=== PATIENT | female | born 1965 | race Caucasian/White ===

== ENCOUNTER 2016-12-01 12:35 | Emergency (ER) | payer OTHER ==
[~2016-12-01] VITALS: Ht 177.8 cm; Wt 118.0 kg
[~2016-12-01 12:35] MED LIST: CETI1CAP3 PO; HYDR-5688 PO; KETO10TA PO; LEVO25TA5 PO; NAPR-1169 PO; NARA2.5T2 PO; OMEP20TA PO; ONDA8TAB6 PO; TOPI50TA16 PO; ZNTT/150 PO
[2016-12-01 12:36] VITALS: Ht 177.8 cm; Wt 118.0 kg
[2016-12-01] MEDS ORDERED: PROCHLORPERAZINE 5 MG/ML 2 ML VIAL IV STA (13:01)
[2016-12-01] MEDS ORDERED: DiphenhydrAMINE HCL 50 MG/ML VIAL IV STA (13:01)
[2016-12-01] MEDS ORDERED: KETOROLAC TROMETHAMINE 30 MG/ML VIAL IV STA (13:01)
[2016-12-01] MEDS ORDERED: DEXAMETHASONE SOD INJ 10 MG/ML VIAL IV ONE (13:15)
[2016-12-01] MEDS ORDERED: ASPI-390 PO (13:19)
[2016-12-01 13:38] VITALS: BP 155/96; PULSE 70; TEMP 36.6; O2SAT 98
--- NOTE | 2016-12-01 14:15 | EMERGENCY ROOM VISIT NOTE ---
History First contact with patient: 12:43 Chief Complaint: HEADACHE Stated Complaint: MIGRAINE X 5 DAYS History of Present Illness The patient is a 51 year old female who presents to the Emergency Room with complaints of migraine headache for the past 5 days. The patient has a reported long-standing history of migraine headaches. Every few months she will have one similar to this that does not improve with her at home medications. Over the past 5 days she has taken Amerge, oral Toradol, and Imitrex without complete resolution of her symptoms. She has not taken anything today or yesterday. The patient rates her discomfort an 8/10. She does follow with Dr. Perez of neurology. She has an appointment with neurology within the next month. This is not the worst headache of her life, and feels similar to her typical bad migraine. She has not had fever or chills. She is with mild photophobia, which is normal. Review of Systems More than 10 systems were reviewed and otherwise negative with the exception of history of present illness. Past Medical/Surgical History History of chronic migraines Family History No pertinent family history Social History Smoking Status: Never Smoker Housing Status: lives with family Occupation Status: employed Current/Historical Medications Scheduled Cetirizine Hcl (All Day Allergy), 1 CAP PO DAILY Levothyroxine Sodium (Levothyroxine Sodium), 1 TAB PO DAILY Naproxen (Naprosyn), 500 MG PO BID Omeprazole (Omeprazole), 1 TAB PO BID Ranitidine (Zantac), 1 TAB PO BID Topiramate (Topamax), 50 MG PO BID Scheduled PRN Rmppbwt-Pueqpkjljimrs-Wjcicgaa (Excedrin Migraine), 2 CAP PO Q6H PRN for Migraine Hydrocodone/Acetaminophen 5MG/325MG ([place] 5MG/325MG), 1 TAB PO DAILY PRN for Pain Ketorolac (Toradol), 10 MG PO UD PRN for Pain Naratriptan Hcl (Amerge), 1 TAB PO UD PRN for Migraine Ondansetron Hcl (Zofran), 8 MG PO TID PRN for Nausea Allergies Coded Allergies: Acetaminophen (Verified Allergy, Intermediate, RASH, 12/01/16) Oxycodone (Verified Allergy, Intermediate, RASH, 12/01/16) Sulfa Antibiotics (Verified Allergy, Intermediate, hives, 12/01/16) Azithromycin (Verified Allergy, Mild, RASH, 12/01/16) Topiramate (Verified Allergy, Unknown, 12/01/16) Codeine (Verified Adverse Reaction, Mild, N/V, 12/01/16) Physical Exam Vital Signs Date Time Temp Pulse Resp B/P Pulse Ox O2 Delivery O2 Flow Rate FiO2 12/01/16 13:38 36.6 70 12 155/96 98 12/01/16 13:36 70 12 155/96 98 Room Air 12/01/16 12:47 70 10 170/110 12/01/16 12:36 36.6 83 20 198/122 98 Room Air Pain Rating (0-10): 4.0 Physical Exam VITALS: Vitals are noted on the nurse's note and reviewed by myself. Vital signs stable. GENERAL: Well-developed, well-nourished, white female who is seated in a darkened room. She does not appear toxic and is cooperative with the examination., HEAD: Normocephalic atraumatic. NECK: Supple without nuchal rigidity. No lymphadenopathy. No thyromegaly. Cervical spine is nontender. No meningismus. HEART: Regular rate and rhythm without murmurs gallops or rubs. LUNGS: Clear to auscultation bilaterally without wheezes, rales or rhonchi. No retractions or accessory muscle use. ABDOMEN: Positive normal bowel sounds x 4. Soft, nontender, without masses or organomegaly. No guarding or rebound tenderness. NEURO: Patient was alert and oriented to person place and time. CN II through XII grossly intact. Deep tendon reflexes 2+ throughout. Medical Decision & Procedures Medications Administered Medications (Trade) Dose Ordered Sig/Deshawn Route Start Time Stop Time Status Last Admin Dose Admin Diphenhydramine HCl (Benadryl Inj) 50 mg NOW STAT IV 12/01/16 13:01 12/01/16 13:03 DC 12/01/16 13:25 50 MG Prochlorperazine Edisylate (Compazine Inj) 10 mg NOW STAT IV 12/01/16 13:01 12/01/16 13:03 DC 12/01/16 13:20 10 MG Dexamethasone Sodium Phosphate (Decadron Inj) 10 mg NOW ONCE IV 12/01/16 13:15 12/01/16 13:16 DC 12/01/16 13:25 10 MG Ketorolac Tromethamine (Toradol Inj) 30 mg NOW STAT IV 12/01/16 13:01 12/01/16 13:03 DC 12/01/16 13:24 30 MG ED Course Physical exam and history were performed. Nursing notes and EMR were reviewed. Patient appears to have headache symptoms for the past 5 days. I had a lengthy discussion with the patient regarding her migraines and typical treatments. She is not regularly seen at this facility for migraines. Evidently she has had normal imaging in the past and does have a neurology appointment. She has used her normal regimen at home without significant relief of symptoms. I discussed options of care with the patient, and we elected to defer CT imaging at this time. She does not have signs of meningitis or encephalitis. The patient will be given 30 mg IV Toradol, 10 mg IV Decadron, 10 mg IV Compazine, and 50 mg IV Benadryl for her symptoms. The patient was asked to keep her appointment with neurology for ongoing care and evaluation. The patient was otherwise invited back to the ER with any new, worsening, or concerning symptoms. She was discharged home under the care of her who is acting as the straight truck driver today. The chart was completed utilizing [employer]AR[employer] Speech Voice Recognition Software. Grammatical errors, random word insertions, pronoun errors, and incomplete sentences are an occasional consequence of this system due to software limitations, ambient noise, and hardware issues. Any formal questions or concerns about the content, text, or information contained within the body of this dictation should be directly addressed to the provider for clarification. . Medical Decision The differential diagnosis includes, but is not limited to: acute intracranial bleed, meningitis, encephalitis, mass or mass effect, sinusitis, infection, tumor, headache, temporal arteritis and carbon monoxide exposure, and migraine. Impression Primary Impression: Headache Departure Information Dispostion Home / Self-Care Condition GOOD Referrals Zheng Cruz D.O. (PCP) Forms HOME CARE DOCUMENTATION FORM, IMPORTANT VISIT INFORMATION Patient Instructions [facility] Additional Instructions You were seen and evaluated today on an emergency basis only. This is not a substitute for, or an effort to provide, complete comprehensive medical care. It is not possible to recognize and treat all injuries or illnesses in a single emergency department visit. For this reason it is recommended that you followup with your primary care physician or neurologist this week for ongoing care and evaluation. DO NOT drive, drink alcohol, operate machinery, or perform dangerous activities today. You were given medications in the ER that can affect your ability to safely function or operate a vehicle. Rest today in a quiet, peaceful, dark environment and get a full 8-10 hrs of sleep tonight. Avoid loud noises, smoke/smoking, alcohol, bright lights, stress, or physical exertion today to minimize the chance the headache may return. Continue current home medications as prescribed. Return to the ER for passing out, worsening headache, vision problems, neck stiffness/pain, fevers, vomiting, worsening of your condition, or as needed.
== END 2016-12-01 13:38 | disposition home or self-care (01) ==
LOC: C.EDB 12:36 → C.EDD 13:38
DX: R51 Headache (principal); Z88.5 Allergy status to narcotic agent; Z88.1 Allergy status to other antibiotic agents; Z88.2 Allergy status to sulfonamides

== ENCOUNTER 2017-08-16 09:24 | Day surgery (SDC) | payer OTHER ==
[2017-08-02 14:58] VITALS: Ht 176.5 cm; Wt 119.1 kg
--- NOTE | 2017-08-02 15:18 | PAT Medication Instructions ---
Service Date Aug 02, 2017. Current Home Medication List Hqxbaaf-Hnoyculrmqmwo-Xchxndvl (Excedrin Migraine), 2 CAP PO Q6H PRN for Migraine Cetirizine Hcl (All Day Allergy), 1 CAP PO QAM Clobetasol Propionate (Clobetasol Propionate), 1 APPLN TOP BID PRN for PRN Hydrocodone/Acetaminophen 5MG/325MG ([place] 5MG/325MG), 1 TABLET PO BID PRN for Pain Levothyroxine Sodium (Levothyroxine Sodium), 1 TAB PO QAM Naproxen (Naprosyn), 500 MG PO BID Naratriptan Hcl (Amerge), 1 TAB PO UD PRN for Migraine Omeprazole (Omeprazole), 1 TAB PO BID Ondansetron Hcl (Zofran), 8 MG PO TID PRN for Nausea Promethazine Hcl (Phenergan), 25 MG PO Q6H PRN for Nausea Ranitidine (Zantac), 1 TAB PO BID Sumatriptan Succinate (Imitrex Statdose), 1 DOSE SQ DAILY PRN for MIGRAINES Topiramate (Topamax), 75 MG PO BID Tramadol (Ultram), 50 MG PO Q8H PRN for Pain Medication Instructions For Your Scheduled Surgery - Check with surgeon for instructions: Naproxen (Naprosyn), 500 MG PO BID Fdithyh-Qeviyaljxowna-Mhtasott (Excedrin Migraine), 2 CAP PO Q6H PRN for Migraine - Hold the following medications 24 hours prior to surgery: Clobetasol Propionate (Clobetasol Propionate), 1 APPLN TOP BID PRN for PRN - Hold the following medications the morning of surgery: Cetirizine Hcl (All Day Allergy), 1 CAP PO QAM - Take the following medications the morning of surgery with a sip of water: Tramadol (Ultram), 50 MG PO Q8H PRN for Pain (okay to take up to 4 hours prior to surgery if needed) Hydrocodone/Acetaminophen 5MG/325MG ([place] 5MG/325MG), 1 TABLET PO BID PRN for Pain (okay to take up to 4 hours prior to surgery if needed) Topiramate (Topamax), 75 MG PO BID Sumatriptan Succinate (Imitrex Statdose), 1 DOSE SQ DAILY PRN for MIGRAINES (if needed) Ranitidine (Zantac), 1 TAB PO BID Ondansetron Hcl (Zofran), 8 MG PO TID PRN for Nausea (if needed) Promethazine Hcl (Phenergan), 25 MG PO Q6H PRN for Nausea(if needed) Omeprazole (Omeprazole), 1 TAB PO BID Levothyroxine Sodium (Levothyroxine Sodium), 1 TAB PO QAM Naratriptan Hcl (Amerge), 1 TAB PO UD PRN for Migraine(if needed) - Take the following medications as scheduled the night before surgery: Tramadol (Ultram), 50 MG PO Q8H PRN for Pain(if needed) Topiramate (Topamax), 75 MG PO BID Sumatriptan Succinate (Imitrex Statdose), 1 DOSE SQ DAILY PRN for MIGRAINES(if needed) Ranitidine (Zantac), 1 TAB PO BID Ondansetron Hcl (Zofran), 8 MG PO TID PRN for Nausea(if needed) Promethazine Hcl (Phenergan), 25 MG PO Q6H PRN for Nausea(if needed) Omeprazole (Omeprazole), 1 TAB PO BID Naratriptan Hcl (Amerge), 1 TAB PO UD PRN for Migraine(if needed) If you have any questions please call us at [phone] or [phone] or [phone]
--- NOTE | 2017-08-02 15:54 | DIAGNOSTIC IMAGING REPORT ---
CHEST PREADMISSION(PA/LAT) HISTORY: 52 years-old Female PAT preoperative exam. No acute chest complaints. COMPARISON: None available TECHNIQUE: PA and lateral views of the chest FINDINGS: Cardiac silhouette is moderately enlarged. No pneumothorax, pleural effusion, focal airspace consolidation or overt pulmonary edema. Bones of the chest are grossly intact. IMPRESSION: No acute cardiopulmonary process. The above report was generated using voice recognition software. It may contain grammatical, syntax or spelling errors. Electronically signed by: Anjel Kumar M.D. 08/02/2017 3:53 PM Dictated Date/Time: 08/02/2017 3:52 PM
[2017-08-02 16:39] LABS: CREATININE 0.88 mg/dl (0.60-1.20); POTASSIUM 4.2 mmol/L (3.5-5.1)
[~2017-08-16] VITALS: Ht 176.5 cm; Wt 119.1 kg
[~2017-08-16 09:24] MED LIST changes: +ASPI-390 PO; +ATROPINE SULFATE 0.1 MG/ML 5ML SYR IV PRN; +CEFAZOLIN 2000MG IV PUSH 10 ML IV SCH; +CLBPO15 TOP; +EpHEDrine SULFATE INJ 50 MG/ML AMP IV PRN; +FENTANYL CITRATE INJ 50 MCG/1 ML 2 ML VIAL IV PRN; +HYDROmorphone INJ 1 MG/ML SYR IV PRN; -KETO10TA PO; +LABETALOL HCL IV 5 MG/ML 20ML IV PRN; +LACTATED RINGER'S 1000ML 1,000 ML IV SCH; +MEPERIDINE HCL 25 MG/ML CARP IV PRN; -NAPR-1169 PO; +NAPR-22 PO; +ONDA-170 PO; -ONDA8TAB6 PO; +ONDANSETRON INJ 2 MG/ML 2 ML VIAL IV PRN; +PROM25TA9 PO; +RANI150T85 PO; +SUMA6KIT SQ; +TRAM-10 PO; -ZNTT/150 PO
[2017-08-16 10:13] VITALS: BP 191/92; PULSE 88; TEMP 36.6; O2SAT 98
[2017-08-16] MEDS ORDERED: MIDAZOLAM HCL 1 MG/ML 2ML VIAL ONE (10:31)
[2017-08-16] MEDS ORDERED: FENTANYL CITRATE INJ 50 MCG/1 ML 2 ML VIAL ONE ×2 (10:31→11:51)
--- NOTE | 2017-08-16 10:54 | History and Physical ---
History & Physical Date Aug 16, 2017. Chief Complaint Chronic leg pain History of Present Illness The patient is a 52 year old female with complaints of chronic leg pain Past Medical/Surgical History Medical Problems: (1) Migraines Surgical Problems: (1) History of cholecystectomy Additional History Hepatic Disease: No Endocrine Disorder: No Kidney Disease: No Hypertension: No Heart Disease: No Bleeding Tendencies: No Infectious Diseases: No Allergies Coded Allergies: Sulfa Antibiotics (Verified Allergy, Intermediate, hives, 08/16/17) Adhesives (Verified Allergy, Mild, ITCHY, BLISTERY-- SURGICAL TAPE, ) Azithromycin (Verified Allergy, Mild, HIVES, 08/16/17) Oxycodone (Verified Adverse Reaction, Mild, ITCH, 08/16/17) Home Medications Scheduled Cetirizine Hcl (All Day Allergy), 1 CAP PO QAM Levothyroxine Sodium (Levothyroxine Sodium), 1 TAB PO QAM Naproxen (Naprosyn), 500 MG PO BID Omeprazole (Omeprazole), 1 TAB PO BID Ranitidine (Zantac), 1 TAB PO BID Topiramate (Topamax), 75 MG PO BID Scheduled PRN Xvxhqaq-Bpvugkkzfssfe-Icrakvcd (Excedrin Migraine), 2 CAP PO Q6H PRN for Migraine Clobetasol Propionate (Clobetasol Propionate), 1 APPLN TOP BID PRN for PRN Hydrocodone/Acetaminophen 5MG/325MG ([place] 5MG/325MG), 1 TABLET PO BID PRN for Pain Naratriptan Hcl (Amerge), 1 TAB PO UD PRN for Migraine Ondansetron Hcl (Zofran), 8 MG PO TID PRN for Nausea Promethazine Hcl (Phenergan), 25 MG PO Q6H PRN for Nausea Sumatriptan Succinate (Imitrex Statdose), 1 DOSE SQ DAILY PRN for MIGRAINES Tramadol (Ultram), 50 MG PO Q8H PRN for Pain Physical Examination Skin: warm/dry, no rash Eyes: normal inspection, EOMI, sclerae normal ENT: normal ENT inspection, pharynx normal Head: normocephalic, atraumatic Neck: supple, no adenopathy, trachea midline Respiratory/Chest: lungs clear, normal breath sounds, no respiratory distress Cardiovascular: regular rate, rhythm, no edema, no murmur Abdomen / GI: normal bowel sounds, non tender Back: normal inspection Extremities: normal inspection, normal range of motion Neurologic/Psych: no motor/sensory deficits, alert, normal reflexes, oriented x 3 Diagnosis Chronic leg pain Plan of Treatment Spinal cord stimulator placement
--- NOTE | 2017-08-16 10:54 | History & Physical Bridge Note ---
H&P Re-Evaluation Bridge Note: I have examined the patient, reviewed the History & Physical and in the interval since the performance of the History & Physical I have noted the following changes of clinical significance: No changes noted
[2017-08-16] MEDS ORDERED: BUPIVACAINE/EPINEPHRINE 0.5% MPF 1:200,000 30 ML VIAL ONE (11:17)
[2017-08-16] MEDS ORDERED: BACITRACIN 50000 UNIT VIAL ONE (11:17)
[2017-08-16] MEDS ORDERED: HYDROmorphone INJ 2 MG/ML SYR/VIAL ONE (11:51)
[2017-08-16] MEDS ORDERED: GLYCOPYRROLATE INJ 0.2 MG/ML VIAL ONE (11:54)
[2017-08-16] MEDS ORDERED: NEOSTIGMINE METHYLSULFATE 1 MG/ML 10ML VIAL ONE (11:54)
[2017-08-16] MEDS ORDERED: ROCURONIUM BROMIDE 10 MG/ML 5 ML VIAL IV ONE (11:54)
[2017-08-16] MEDS ORDERED: LIDOCAINE HCL 2% 2 ML VIAL (20MG/ML) ONE (11:54)
[2017-08-16] MEDS ORDERED: PROPOFOL IV EMULSION 10 MG/ML 20 ML VIAL IV ONE (11:54)
[2017-08-16] MEDS ORDERED: KETOROLAC TROMETHAMINE 30 MG/ML VIAL ONE (11:54)
[2017-08-16] MEDS ORDERED: DEXAMETHASONE SOD INJ 4 MG/ML VIAL ONE (11:54)
[2017-08-16] MEDS ORDERED: ONDANSETRON INJ 2 MG/ML 2 ML VIAL ONE (11:54)
[2017-08-16] MEDS ORDERED: HYDR-5688 PO (12:21)
--- NOTE | 2017-08-16 12:21 | Discharge Instructions ---
Discharge Instructions Date of Service Aug 16, 2017. Admission Reason for Admission: Lumbar Post-Laminectomy Syndrome Discharge Discharge Diagnosis / Problem: chronic back and leg pain Discharge Goals Goal(s): Decrease discomfort Activity Recommendations Activity Limitations: per Instructions/Follow-up section . Instructions / Follow-Up Instructions / Follow-Up ACTIVITY RECOMMENDATIONS: SELF CARE INSTRUCTIONS AFTER A LAMINECTOMY 1. No prolonged sitting (less than 30 minutes for the first 3 weeks after surgery). 2. No bending, lifting more than 5 pounds, or twisting (roll like a log when turning in bed). 3. You may shower 3 days after surgery if no drainage from wound. Thoroughly dry wound. Do not soak in the tub. 4. Please walk as much as you can for exercise. Gradually increase the distance that you walk as your endurance increases. 5. You may drive in 7-10 days if you are comfortable and no longer requiring pain medications. SPECIAL CARE INSTRUCTIONS: VERY IMPORTANT TO READ AND REVIEW A. Your surgical incision has been closed with a cosmetic suture under the skin that will dissolve in about 6 weeks. In 14 days, you can use a pair of clean scissors and cut the suture that is left outside of the skin at the ends of your incision. B. Complications are uncommon, but please contact us if you have any signs or symptoms of: 1. wound infection (fever higher than 102.5 degrees F, redness, separation of wound, drainage, or increasing pain from the incision) 2. blood clots in legs (pain, swelling, redness and warmth in legs) 3. urinary tract infection (fever higher than 102.5 degrees, burning upon urination or increased frequency of urination) 4. nerve problems (inability to walk on your toes or heels, numbness, loss of bowel or bladder control) 5. any other symptoms that concern you. C. Please call the office at if you have any concerns or questions about your operation or recovery. MANAGING PAIN AFTER SPINAL SURGERY 1. Narcotic medication is intended for short-term use and will be provided for surgical pain. Surgical pain usually lasts for a period of 4-6 weeks. Narcotic medication includes Percocet, Vicodin, Darvocet, Tylenol #3 or Lortab. 2. Longer-term pain is more appropriately treated with non-narcotic medication such as Tylenol ES. 3. Muscle spasm is not appropriately treated with narcotics. Muscle relaxers such as Soma, Flexeril or Skelaxin can be used along with Tylenol ES. 4. Remember that we all live with some "aches and pains". This is not unusual or uncommon after an injury or as we get older. 5. We will provide appropriate medication within the normal guidelines of their prescribed use. We will also be very cautious and aware of potential abuse and extended duration of patients' medication needs. 6. Please allow 2-3 days to process refills. Prescriptions will not be mailed but must be picked up at the office. FOLLOW UP VISIT: Keep your scheduled follow-up appointment. Any questions, please call the office at . Current Hospital Diet Patient's current hospital diet: Discharge Diet Recommended Diet: Regular Diet Procedures Procedures Performed: Spinal Cord Stimulator Placement Pending Studies Studies pending at discharge: no Medical Emergencies . Who to Call and When: Medical Emergencies: If at any time you feel your situation is an emergency, please call 911 immediately. . Non-Emergent Contact Non-Emergency issues call your: Primary Care Provider . "Provider Documentation" section prepared by Pierre Glover. . VTE Core Measure Inpt VTE Proph given/why not?: Jory Christian, SCD's
--- NOTE | 2017-08-16 12:31 | [facility] Operative Report ---
Operative Report Operative Date Aug 16, 2017. Pre-Operative Diagnosis Chronic leg pain Post-Operative Diagnosis same as pre-operative Procedure(s) Performed #1 T10 laminotomy. #2 placement of 16-lead dorsal column stimulator paddle into the thoracic canal. #3 placement of rechargeable battery. Surgeon Dr. Pierre Glover Medical Billing Representative Surgeon(s) DANIEL Aguirre Estimated Blood Loss 10ml Findings None Specimens none per surgeon Description of Procedure Patient was met with preoperatively case discussed all questions addressed. After informed consent was obtained patient was taken to the operative suite underwent intubation and placed in a prone position the Steve table on top Sahil frame. All bony prominences were well-padded eyes inspected to ensure no external pressure placed upon them. This point the thoracal lumbar spines prepped draped nostril fashion. The assistance of fluoroscopy verified the T10 11 T 12 disc space. Midline incision was created overlying this region. Sharp dissection with the assistance of Bovie cautery was performed onto an exposing the interlaminar space at T11-T12. Then performed a midline laminotomy large enough to insert a 16-lead dorsal column stimulator paddle proximally. We verified appropriate position with fluoroscopy. I then sewed the leads into position created a pocket over the right flank to hold the battery. I then tunneled to the battery pocket. The leads were passed attached the battery battery and tested for efficacy. The battery was then placed pocket all incisions were copious irrigated closed with subcutaneous Vicryl and 4 Monocryl for final skin closure Steri-Strips sterile dressings placed. Patient awakened and taken to PACU stable condition. These note Chad Sher assisted in the procedure and final skin closure. I attest to the content of the Intraoperative Record and any orders documented therein. Any exceptions are noted below.
--- NOTE | 2017-08-16 12:47 | DIAGNOSTIC IMAGING REPORT ---
SPINE ONE VIEW, ANY LEVEL CLINICAL HISTORY: 52 years-old Female presenting with LUMBAR IMPLANT. TECHNIQUE: 1 fluoroscopic spot image(s) obtained as part of an intraoperative procedure. COMPARISON: 07/17/2017. FINDINGS/IMPRESSION: There has been interval placement of a spinal stimulator at the lower thoracic levels in the midline. Please see surgical report for further details. Fluoroscopy dosage (mGy): 6.97. Fluoroscopy time: 7.9 seconds. Number of fluoroscopic spot images: 1. Electronically signed by: Sukumar Villar M.D. 08/16/2017 12:46 PM Dictated Date/Time: 08/16/2017 12:45 PM
[2017-08-16] MEDS ORDERED: FLOSEAL HEMOSTATIC MATRIX 5ML TOP ONE (13:15)
--- NOTE | 2017-08-16 13:27 | Anesthesiology Progress Note ---
Anesthesia Post Op Note Date & Time Aug 16, 2017 at 13:27 Vital Signs Pain Intensity: 0 Vital Signs Past 12 Hours Date Time Temp Pulse Resp B/P (MAP) Pulse Ox O2 Delivery O2 Flow Rate FiO2 08/16/17 13:22 79 14 08/16/17 13:22 74 14 98 08/16/17 13:20 156/103 08/16/17 13:17 79 14 100 08/16/17 13:17 81 14 08/16/17 13:15 171/86 08/16/17 13:12 75 16 08/16/17 13:12 76 16 100 08/16/17 13:11 77 14 100 08/16/17 13:11 80 14 08/16/17 13:10 173/85 08/16/17 13:06 76 15 100 08/16/17 13:06 77 15 08/16/17 13:05 166/92 08/16/17 13:01 80 18 08/16/17 13:01 80 18 100 08/16/17 13:00 178/102 08/16/17 12:59 84 15 08/16/17 12:59 85 15 100 08/16/17 12:55 158/87 08/16/17 12:54 84 14 100 08/16/17 12:54 82 14 08/16/17 12:50 157/84 08/16/17 12:49 36.6 77 16 151/84 99 Oxymask 10 08/16/17 12:49 89 151/84 97 08/16/17 12:49 89 08/16/17 10:13 36.6 88 18 191/92 (125) 98 Room Air Notes Mental Status: alert / awake / arousable, participated in evaluation Pt Amnestic to Procedure: Yes Nausea / Vomiting: adequately controlled Pain: adequately controlled Airway Patency, RR, SpO2: stable & adequate BP & HR: stable & adequate Hydration State: stable & adequate Anesthetic Complications: no major complications apparent
[2017-08-16 13:40] VITALS: BP 157/70; PULSE 76; TEMP 36.5; O2SAT 98
[2017-08-16] MEDS ORDERED: NURSING VERBAL MED ORDER ONE (13:45)
[2017-08-16] MEDS ORDERED: HYDROCODONE/ACETAMIN 5/325MG TAB ONE (13:50)
[2017-08-16 14:10] VITALS: BP 178/79; PULSE 80; TEMP 36.5; O2SAT 99
[2017-08-16] MEDS ORDERED: HYDROCODONE/ACETAMIN 5/325MG TAB PO PRN (14:15)
[2017-08-16 14:40] VITALS: BP 158/91; PULSE 70; TEMP 36.5; O2SAT 97
== END 2017-08-16 15:00 | disposition home or self-care (01) ==
LOC: C.ACU 09:24
PROVIDERS: ATTEND Orthopaedic Surgery Orthopaedic Surgery of the Spine
DX: M79.606 Pain in leg, unspecified (principal); G89.29 Other chronic pain; Z88.2 Allergy status to sulfonamides; Z98.890 Other specified postprocedural states; Z90.49 Acquired absence of other specified parts of digestive tract

== ENCOUNTER 2018-04-21 16:45 | Observation (INO) | payer OTHER ==
[~2018-04-21] VITALS: Ht 175.3 cm; Wt 121.3 kg
[~2018-04-21 16:45] MED LIST changes: -ATROPINE SULFATE 0.1 MG/ML 5ML SYR IV PRN; -CEFAZOLIN 2000MG IV PUSH 10 ML IV SCH; -EpHEDrine SULFATE INJ 50 MG/ML AMP IV PRN; -FENTANYL CITRATE INJ 50 MCG/1 ML 2 ML VIAL IV PRN; -HYDROmorphone INJ 1 MG/ML SYR IV PRN; -LABETALOL HCL IV 5 MG/ML 20ML IV PRN; -LACTATED RINGER'S 1000ML 1,000 ML IV SCH; -MEPERIDINE HCL 25 MG/ML CARP IV PRN; -ONDANSETRON INJ 2 MG/ML 2 ML VIAL IV PRN
[2018-04-21] MEDS ORDERED: SODIUM CHLORIDE 0.9% 1000ML 1,000 ML IV STA (18:19)
--- NOTE | 2018-04-21 19:00 | DIAGNOSTIC IMAGING REPORT ---
CHEST ONE VIEW PORTABLE CLINICAL HISTORY: 53 years-old Female presenting with pre-op. TECHNIQUE: Portable upright AP view of the chest was obtained. COMPARISON: 08/02/2017. FINDINGS: Cardiomediastinal silhouette normal. No focal opacity. No large effusion or pneumothorax. Partially visualized spinal stimulator projects over the lower thoracic region. IMPRESSION: 1. No acute cardiopulmonary disease. Electronically signed by: Sukumar Villar M.D. 04/21/2018 6:59 PM Dictated Date/Time: 04/21/2018 6:58 PM
[2018-04-21 19:06] LABS: BASO % 0.4 %; BASO ABS # 0.04 K/uL (0-0.2); EOS % 3.2 %; EOS ABS # 0.33 K/uL (0-0.5); HEMATOCRIT 40.8 % (37-47); HEMOGLOBIN 13.4 g/dL (12.0-16.0); IG# 0.01 K/uL (0.00-0.02); LYMPH % 21.1 %; LYMPH ABS # 2.16 K/uL (1.2-3.4); MEAN CORPUSCULAR HEMOGLOBIN 27.6 pg (25-34); MEAN CORPUSCULAR HGB CONC 32.8 g/dl (32-36); MEAN PLATELET VOLUME 9.2 fL (7.4-10.4); MONO % 6.3 %; MONO ABS # 0.65 K/uL (0.11-0.59); NEUT % 68.9 %; NEUT ABS # 7.06 K/uL (1.4-6.5); PLATELET COUNT 321 K/uL (130-400); RED CELL DISTRIBUTION WIDTH CV 14.5 % (11.5-14.5); RED CELL DISTRIBUTION WIDTH SD 44.4 fL (36.4-46.3); WHITE BLOOD COUNT 10.25 K/uL (4.8-10.8)
--- NOTE | 2018-04-21 19:06 | EMERGENCY ROOM VISIT NOTE ---
History First contact with patient: 18:23 Chief Complaint: REFERRED BY DOCTOR Stated Complaint: APPENDICITIS/REFERRED BY DOCTOR History of Present Illness The patient is a 53 year old female who presents to the Emergency Room with complaints of right lower quadrant pain that started earlier today. Patient denies any nausea vomiting, no recent change in bowel movements, no change in urine. Patient states after complaining at her place of work, she was sent for an outpatient CAT scan which revealed acute appendicitis and she was told to immediately come to the emergency room. Patient admits to subjective fevers and chills, however did not measure her temperature. Patient states she did have a bowl of cereal for lunch at noon. Patient denies any other recent change in medications or trauma. Patient takes medication for chronic leg and foot pain as well as a history of recurrent migraines. No anticoagulation. Patient states urine dip in the office was negative. Outpatient radiology report reviewed and placed in chart at bedside. Review of Systems See HPI for pertinent positives & negatives. A total of 10 systems reviewed and were otherwise negative. Past Medical/Surgical History Medical Problems: (1) Migraines Surgical Problems: (1) History of cholecystectomy Social History Smoking Status: Never Smoker Drug Use: none Marital Status: Housing Status: lives with family Occupation Status: employed Current/Historical Medications Scheduled Cetirizine Hcl (All Day Allergy), 1 CAP PO QAM Levothyroxine Sodium (Levothyroxine Sodium), 1 TAB PO QAM Naproxen (Naprosyn), 500 MG PO BID Omeprazole (Omeprazole), 1 TAB PO BID Ranitidine (Zantac), 1 TAB PO BID Topiramate (Topamax), 75 MG PO BID Tramadol Hcl (Ultram), 50 MG PO Q4H Scheduled PRN Eiccewy-Yylzywlxarohh-Kgpyejbq (Excedrin Migraine), 2 CAP PO Q6H PRN for Migraine Clobetasol Propionate (Clobetasol Propionate), 1 APPLN TOP BID PRN for PRN Naratriptan Hcl (Amerge), 1 TAB PO UD PRN for Migraine Ondansetron Hcl (Zofran), 8 MG PO TID PRN for Nausea Promethazine Hcl (Phenergan), 25 MG PO Q6H PRN for Nausea Sumatriptan Succinate (Imitrex Statdose), 1 DOSE SQ DAILY PRN for MIGRAINES Physical Exam Vital Signs Date Time Temp Pulse Resp B/P (MAP) Pulse Ox O2 Delivery O2 Flow Rate FiO2 04/21/18 22:18 36.5 92 21 172/95 100 Oxymask 10 04/21/18 20:08 36.8 85 18 171/89 99 Room Air 04/21/18 16:51 36.8 93 18 192/92 99 Room Air Physical Exam GENERAL: alert, well appearing, well nourished, no distress, non-toxic EYE EXAM: normal conjunctiva, PERRL and EOM's grossly intact OROPHARYNX: no exudate, no erythema, lips, buccal mucosa, and tongue normal and mucous membranes are moist NECK: supple, no nuchal rigidity, no adenopathy, non-tender LUNGS: Clear to auscultation. Normal chest wall mechanics, no w/r/r HEART: no murmurs, S1 normal and S2 normal ABDOMEN: abdomen soft, right lower quadrant tenderness, normo-active bowel sounds, no masses, no rebound or guarding. BACK: Back is symmetrical on inspection and there is no deformity, no midline tenderness, no CVA tenderness. SKIN: no rashes and no bruising UPPER EXTREMITIES: upper extremities are grossly normal. LOWER EXTREMITIES: No pitting edema. NEURO EXAM: Normal sensorium, cranial nerves II-XII grossly intact, normal speech, no gross weakness of arms, no gross weakness of legs. Gross sensation intact. Medical Decision & Procedures Laboratory Results Test 04/21/18 18:50 Prothrombin Time 10.5 SECONDS (9.0-12.0) Prothromb Time International Ratio 1.0 (0.9-1.1) Total Bilirubin 0.3 mg/dl (0.2-1) Aspartate Amino Transf (AST/SGOT) 16 U/L (15-37) Alanine Aminotransferase (ALT/SGPT) 20 U/L (12-78) Alkaline Phosphatase 93 U/L (45-117) Troponin I < 0.015 ng/ml (0-0.045) Total Protein 7.8 gm/dl (6.4-8.2) Albumin 3.8 gm/dl (3.4-5.0) Globulin 4.0 gm/dl (2.5-4.0) Albumin/Globulin Ratio 1.0 (0.9-2) Medications Administered Medications (Trade) Dose Ordered Sig/Deshawn Route Start Time Stop Time Status Last Admin Dose Admin Sodium Chloride 1,000 ml @ 125 mls/hr Q8H STAT IV 04/21/18 18:19 04/21/18 23:09 DC 04/21/18 19:22 125 MLS/HR Bupivacaine HCl (Marcaine 0.5% Pf Inj) 30 ml STK-MED ONCE .ROUTE 04/21/18 19:52 04/21/18 19:53 DC 04/21/18 21:59 12 ML Hydromorphone HCl (Dilaudid Inj) 0.5 mg Q3H PRN IV 04/21/18 22:15 04/22/18 10:28 DC 04/22/18 05:19 0.5 MG Hydromorphone HCl (Dilaudid Inj) 1 mg Q3H PRN IV 04/21/18 22:15 04/22/18 10:28 DC 04/22/18 00:55 1 MG Ondansetron HCl (Zofran Inj) 4 mg Q6H PRN IV 04/21/18 22:15 04/22/18 10:28 DC 04/22/18 09:51 4 MG ECG Per My Interpretation Indication: abdominal pain Rate (beats per minute): 75 Rhythm: normal sinus Findings: no acute ischemic change (Low voltage throughout) ED Course 1900: [place] Calzada with general surgery at bedside. 1950: [place] Paige with general surgery states they are going to plan to take the patient to the operating room shortly. Labs, EKG, chest x-ray reviewed. Medical Decision Differential diagnosis: Etiologies such as appendicitis, diverticulitis, PUD, biliary pathology, UTI, pancreatitis, obstruction, mesenteric ischemia, aortic pathology, infections, inflammatory bowel disease, renal colic, as well as others were entertained. Patient well-appearing here despite outpatient CT with results showing acute appendicitis. Patient's labs here are reassuring. General surgery contacted. Patient seen and examined by them in the emergency room the patient taken to the operating room. Patient hemodynamically stable. No evidence of CT of abscess or perforation. Patient declined pain or nausea medication. Medication Reconcilliation Current Medication List: was personally reviewed by me Blood Pressure Screening Patient's blood pressure: Normal blood pressure Blood pressure disposition: Elevated BP felt to be situational Impression Primary Impression: Acute appendicitis Additional Impression: Right lower quadrant abdominal pain Departure Information Prescriptions Tramadol Hcl (ULTRAM) 50 Mg Tab 50 MG PO Q4H for 3 Days, #12 TAB PRN PAIN Prov: Estrella Jacobs PA-C 04/22/18 Referrals Mitali Gutierrez D.O. (PCP) Patient Instructions [facility] Problem Qualifiers Primary Impression: Acute appendicitis Acute appendicitis type: with localized peritonitis Qualified Codes: K35.3 - Acute appendicitis with localized peritonitis
[2018-04-21 19:31] LABS: ALBUMIN 3.8 gm/dl (3.4-5.0); ALKALINE PHOSPHATASE 93 U/L (45-117); ALT/SGPT 20 U/L (12-78); AST/SGOT 16 U/L (15-37); BLOOD UREA NITROGEN 15 mg/dl (7-18); CALCIUM 8.6 mg/dl (8.5-10.1); CARBON DIOXIDE 21 mmol/L (21-32); CREATININE 0.99 mg/dl (0.60-1.20); GLUCOSE 79 mg/dl (70-99); POTASSIUM 3.8 mmol/L (3.5-5.1); SODIUM 135 mmol/L (136-145); TOTAL PROTEIN 7.8 gm/dl (6.4-8.2)
[2018-04-21] MEDS ORDERED: CEFOXITIN SOD 2 GM VIAL IV STA (19:51)
[2018-04-21] MEDS ORDERED: HYDR-5688 PO (19:51)
[2018-04-21] MEDS ORDERED: BUPIVACAINE 0.5 % 5 MG/1 ML PF 10ML VIAL ONE (19:52)
--- NOTE | 2018-04-21 19:59 | History and Physical ---
History & Physical Date Apr 21, 2018. Chief Complaint RLQ pain, early acute appendicitis by outpatient CT. History of Present Illness Patient is a 53F w/ PMH migraines and implanted stimulator for chronic leg pain. who presented to her PCP today for a CT scan at [facility] due to RLQ abdominal pain that started when she woke up this AM. The results came back showing a mildly dilated appendix at the tip measuring 9mm with some fat stranding, suspicious for early acute appendicitis. Denies nausea, vomiting or recent illness. Denies fevers although she reports she is cold. Denies problems like this in the past. Moving her bowels and urinating without issue. PSHx significant for lap suhail. Denies use of blood thinning or anticoagulant medications. Denies problems with anesthesia in the past. Patient has never had a colonoscopy. Patient past ate a small cupcake today prior to her CT scan around [id number] as it is her birthday. Past Medical/Surgical History Medical Problems: (1) Migraines Surgical Problems: (1) History of cholecystectomy Additional History Hepatic Disease: No Endocrine Disorder: No Kidney Disease: No Hypertension: No Heart Disease: No Bleeding Tendencies: No Infectious Diseases: No Allergies Coded Allergies: Sulfa Antibiotics (Verified Allergy, Intermediate, hives, 04/21/18) Adhesives (Verified Allergy, Mild, ITCHY, BLISTERY-- SURGICAL TAPE, 04/21/18 ) Azithromycin (Verified Allergy, Mild, HIVES, 04/21/18) Oxycodone (Verified Adverse Reaction, Mild, ITCH, 04/21/18) Home Medications Scheduled Cetirizine Hcl (All Day Allergy), 1 CAP PO QAM Levothyroxine Sodium (Levothyroxine Sodium), 1 TAB PO QAM Naproxen (Naprosyn), 500 MG PO BID Omeprazole (Omeprazole), 1 TAB PO BID Ranitidine (Zantac), 1 TAB PO BID Topiramate (Topamax), 75 MG PO BID Scheduled PRN Ddpbaas-Ibtdhpokvygwl-Owzapuzw (Excedrin Migraine), 2 CAP PO Q6H PRN for Migraine Clobetasol Propionate (Clobetasol Propionate), 1 APPLN TOP BID PRN for PRN Hydrocodone/Acetaminophen 5MG/325MG ([place] 5MG/325MG), 1 TAB PO BID PRN for Pain Naratriptan Hcl (Amerge), 1 TAB PO UD PRN for Migraine Ondansetron Hcl (Zofran), 8 MG PO TID PRN for Nausea Promethazine Hcl (Phenergan), 25 MG PO Q6H PRN for Nausea Sumatriptan Succinate (Imitrex Statdose), 1 DOSE SQ DAILY PRN for MIGRAINES Tramadol (Ultram), 50 MG PO Q8H PRN for Pain Physical Examination Skin: warm/dry Head: normocephalic, atraumatic Neck: trachea midline Respiratory/Chest: no respiratory distress Abdomen / GI: normal bowel sounds, + pertinent finding (RLQ and mid right abdomen TTP, soft, non-distended) Neurologic/Psych: alert, oriented x 3 ASA Classification: ASA Class II Plan of Treatment Early acute appendicitis Patient seen and examined with Dr. Rand. Imaging reviewed. Plan for laparoscopic appendectomy, possible open with Dr. Rand in the OR. NPO, 2g IV Mefoxin now, SCDs. Risks, benefits, alternatives and perioperative procedures were discussed in detail with patient and - all questions answered. OR notified. Please contact with questions or concerns.
[2018-04-21] MEDS ORDERED: CEFOXITIN IV 2,000 MG in DEXTROSE 5% 50ML 50 ML IV SCH (20:00)
[2018-04-21] MEDS ORDERED: SUCCINYLCHOLINE CHLORIDE 20 MG/ML 10 ML VIAL IV ONE (20:02)
[2018-04-21] MEDS ORDERED: PROPOFOL IV EMULSION 10 MG/ML 20 ML VIAL ONE (20:02)
[2018-04-21] MEDS ORDERED: FENTANYL CITRATE INJ 50 MCG/1 ML 2 ML VIAL ONE ×2 (20:03)
[2018-04-21] MEDS ORDERED: MIDAZOLAM HCL 1 MG/ML 2ML VIAL ONE (20:03)
[2018-04-21] MEDS ORDERED: EpHEDrine SULFATE INJ 50 MG/ML AMP IV PRN (20:15)
[2018-04-21] MEDS ORDERED: ATROPINE SULFATE 0.1 MG/ML 5ML SYR IV PRN (20:15)
[2018-04-21] MEDS ORDERED: FENTANYL CITRATE INJ 50 MCG/1 ML 2 ML VIAL IV PRN (20:15)
[2018-04-21] MEDS ORDERED: HYDROmorphone INJ 0.5 MG/0.5 ML SYR IV PRN ×2 (20:15→22:15)
[2018-04-21] MEDS ORDERED: ONDANSETRON INJ 2 MG/ML 2 ML VIAL IV PRN ×2 (20:15→22:15)
[2018-04-21] MEDS ORDERED: ONDANSETRON INJ 2 MG/ML 2 ML VIAL ONE (21:23)
[2018-04-21] MEDS ORDERED: DEXAMETHASONE SOD INJ 4 MG/ML VIAL ONE (21:23)
[2018-04-21] MEDS ORDERED: GLYCOPYRROLATE INJ 0.2 MG/ML VIAL ONE (21:24)
[2018-04-21] MEDS ORDERED: ROCURONIUM BROMIDE 10 MG/ML 5 ML VIAL ONE (21:24)
[2018-04-21] MEDS ORDERED: NEOSTIGMINE METHYLSULFATE 5 MG/5 ML SYR ONE (21:24)
--- NOTE | 2018-04-21 22:02 | [facility] Post Operative Brief Note ---
Immediate Operative Summary Operative Date Apr 21, 2018. Pre-Operative Diagnosis Early acute appendicitis Post-Operative Diagnosis Early acute appendicitis Procedure(s) Performed Laparoscopic Appendectomy Surgeon Dr. Rand Jewelry Designer Surgeon(s) Zheng Gonzalez PA-C Estimated Blood Loss 4CC Findings Consistent with Post-Op Diagnosis Acute, nonperforated appendicitis Specimens A. Appendix Drains None Anesthesia Type General Complication(s) none Disposition Accompanied Pt To Recover: no Disposition: Recovery Room / PACU
--- NOTE | 2018-04-21 22:05 | [facility] Operative Report ---
Operative Report Operative Date Apr 21, 2018. Pre-Operative Diagnosis Early acute appendicitis Post-Operative Diagnosis Same Procedure(s) Performed Laparoscopic appendectomy Surgeon Dr. Rand Veneer Patcher Surgeon(s) Zheng Gonzalez PA-C Estimated Blood Loss 4CC Findings Acute, nonperforated appendicitis Specimens A. Appendix Drains None Anesthesia General Complication(s) None Disposition Recovery Room / PACU Indications 53-year-old female with signs and symptoms of appendicitis confirmed by CT scan , plan for laparoscopic appendectomy. The risks of the procedure were discussed , all questions were answered, and the patient agreed to proceed with surgery as planned. Description of Procedure The patient was properly identified, consented, and taken to the operating room where she was placed in the supine position. General endotracheal anesthesia was induced. SCDs and a safety belt were placed. Preoperative antibiotics were administered. A Link catheter was not placed. The patient's abdomen was prepped and draped in the standard sterile fashion. Surgical timeout was performed and all parties were in agreement that this was the correct patient and procedure to be performed and we continued as planned. A curvilinear infraumbilical incision was made with electrocautery and deepened down to the fascia with blunt dissection. The base of the umbilicus was grasped with a Kelvin and elevated towards the ceiling. An incision was made in the midline fascia with a knife and entry into the peritoneum was confirmed. Stay suture of 0 Vicryl was placed and a Grider trocar was inserted. The abdomen was insufflated with carbon dioxide which the patient tolerated without incident. The laparoscope was inserted and no damage from initial trocar placement was noted, no gross abnormalities were noted within the 4 quadrants the abdomen. 5 mm ports were then placed in the left lower quadrant with care not to damage the epigastric vessels, and in the suprapubic midline with care not to damage the bladder. The patient was placed in Trendelenburg position and rotated towards the left. The small bowel was swept away from the right lower quadrant. The cecum was grasped with an atraumatic grasper. The appendix was moderately inflamed at the tip. It was adhesed to the cecum and curled back on itself. There was no evidence of perforation. There was no fluid in the pelvis. A window was created between the base of the appendix and the mesoappendix. A mendez loaded endoscopic stapler was then used to divide the appendix at its base. A harmonic was then used to divide the mesoappendix. Hemostasis was good. The appendix was placed in an Endo Catch bag and removed through the umbilical port site. The right lower quadrant and pelvis was irrigated and hemostasis was found to be good. 5 mm trochars were removed under direct visualization and the abdomen was allowed to collapse. The umbilical port site fascia was closed with 0 Vicryl suture. The wound was irrigated, and the skin of all ports was closed with 4-0 Monocryl subcuticular sutures. Dermabond was placed over the wounds. The patient was extubated in the operating room and taken to the PACU where she recovered without apparent incident. All sponge, instrument and needle counts were correct at the conclusion of the procedure. The patient tolerated the procedure well. The physician's assistant pressman was present and scrubbed for the entirety of the case. He was critical in positioning the patient, prepping and draping, retraction and exposure, driving the laparoscope, closure the incisions, placement of the dressings. I attest to the content of the Intraoperative Record and any orders documented therein. Any exceptions are noted below.
[2018-04-21] MEDS ORDERED: HYDROCODONE/ACETAMIN 5/325MG TAB PO PRN ×2 (22:15)
[2018-04-21] MEDS ORDERED: ACETAMINOPHEN IV 100 ML IV PRN (22:15)
[2018-04-21] MEDS ORDERED: HYDROmorphone INJ 1 MG/ML SYR IV PRN (22:15)
[2018-04-21] MEDS ORDERED: IV FLUIDS COMPLETED PRN (22:30)
[2018-04-21] MEDS ORDERED: LABETALOL HCL IV 5 MG/ML 20ML ONE ×2 (22:35→22:44)
--- NOTE | 2018-04-21 22:42 | Anesthesiology Progress Note ---
Anesthesia Post Op Note Date & Time Apr 21, 2018 at 22:41 Vital Signs Pain Intensity: 0 Vital Signs Past 12 Hours Date Time Temp Pulse Resp B/P (MAP) Pulse Ox O2 Delivery O2 Flow Rate FiO2 04/21/18 22:35 83 16 160/95 100 Oxymask 3 04/21/18 22:25 88 20 174/94 100 Oxymask 5 04/21/18 22:18 36.5 92 21 172/95 100 Oxymask 10 04/21/18 20:08 36.8 85 18 171/89 99 Room Air 04/21/18 16:51 36.8 93 18 192/92 99 Room Air Notes Mental Status: alert / awake / arousable, participated in evaluation Pt Amnestic to Procedure: Yes Nausea / Vomiting: adequately controlled Pain: adequately controlled Airway Patency, RR, SpO2: stable & adequate BP & HR: stable & adequate Hydration State: stable & adequate Anesthetic Complications: no major complications apparent
[2018-04-21] MEDS ORDERED: LABETALOL HCL IV 5 MG/ML 20ML IV PRN (22:45)
[2018-04-21] MEDS ORDERED: NURSING VERBAL MED ORDER ONE (22:45)
[2018-04-21 23:00] VITALS: BP 144/87; PULSE 75; TEMP 36.8; O2SAT 96
[2018-04-21 23:15] VITALS: O2SAT 96
[2018-04-21] MEDS: LACTATED RINGER'S 1000ML 1,000 ML IV SCH (23:19)
[2018-04-21 23:30] VITALS: BP 144/95; PULSE 75; TEMP 36.5; O2SAT 94
[2018-04-21] MEDS ORDERED: COUGH DROP (SUGAR FREE) LOZ 24 LOZ/1 BOX LOZ ONE (23:35)
--- NOTE | 2018-04-21 23:35 | Discharge Instructions ---
Discharge Instructions Date of Service Apr 21, 2018. Admission Reason for Admission: Acute Appendicitis Discharge Discharge Diagnosis / Problem: Acute Appendicitis Discharge Goals Goal(s): Decrease discomfort, Improve function Activity Recommendations Activity Limitations: as noted below Lifting Limitations: no more than 10 pounds, until after follow-up appointment Exercise/Sports Limitations: until after follow-up appointment May Resume Sexual Activity: after follow-up appointment Shower/Bathe: tomorrow (please do not soak/scrub wounds) Driving or Machine Use: resume 3 days after discharge (Please do not drive while using narcotic pain medication) . Instructions / Follow-Up Instructions / Follow-Up You have surgical glue covering your incision sites. Please allow this to fall off on its own. Follow-up with Dr. Rand in 1-2 weeks. Please contact our office at [phone] to schedule an appointment if you have not done so already. Please contact our office with any further questions or concerns. [facility] General Surgery [address] [place] [address] Current Hospital Diet Patient's current hospital diet: Clear Liquid Diet Discharge Diet Recommended Diet: Regular Diet Procedures Procedures Performed: Laparoscopic Appendectomy Pending Studies Studies pending at discharge: yes List of pending studies: pathology Medical Emergencies . Who to Call and When: Medical Emergencies: If at any time you feel your situation is an emergency, please call 911 immediately. . Non-Emergent Contact Non-Emergency issues call your: Primary Care Provider, Surgeon Call Non-Emergent contact if: you have a fever, temperature is above 101.5, your pain is not controlled, your pain is worsening, wound has increased drainage, wound has increased redness . "Provider Documentation" section prepared by Zheng Gonzalez. . [place] Drug Monitoring Program Search Results: patient reviewed within database, no issues identified
[2018-04-21] MEDS ORDERED: NURSING DECISION MEDICATION ORDER SCH (23:45)
[2018-04-21] MEDS ORDERED: COUGH DROP (SUGAR FREE) LOZ 24 LOZ/1 BOX LOZ PRN (23:45)
[2018-04-22 00:55] VITALS: BP 150/77; PULSE 67; TEMP 36.8; O2SAT 96
[2018-04-22 01:04] VITALS: Ht 175.3 cm; Wt 121.3 kg
[2018-04-22 02:00] VITALS: BP 130/83; PULSE 77; TEMP 36.7; O2SAT 91
[2018-04-22 04:30] VITALS: BP 117/69; PULSE 75; TEMP 36.7; O2SAT 95
[2018-04-22] MEDS ORDERED: LEVOTHYROXINE 25 MCG TAB PO SCH (06:00)
[2018-04-22 07:21] LABS: BASO % 0.1 %; BASO ABS # 0.01 K/uL (0-0.2); EOS % 0.1 %; EOS ABS # 0.01 K/uL (0-0.5); HEMATOCRIT 38.4 % (37-47); HEMOGLOBIN 12.2 g/dL (12.0-16.0); IG# 0.02 K/uL (0.00-0.02); LYMPH % 7.8 %; LYMPH ABS # 0.71 K/uL (1.2-3.4); MEAN CELL VOLUME 84.6 fL (80-100); MEAN CORPUSCULAR HEMOGLOBIN 26.9 pg (25-34); MEAN CORPUSCULAR HGB CONC 31.8 g/dl (32-36); MEAN PLATELET VOLUME 9.7 fL (7.4-10.4); MONO % 2.7 %; MONO ABS # 0.25 K/uL (0.11-0.59); NEUT % 89.1 %; NEUT ABS # 8.16 K/uL (1.4-6.5); PLATELET COUNT 313 K/uL (130-400); RED CELL DISTRIBUTION WIDTH CV 14.6 % (11.5-14.5); RED CELL DISTRIBUTION WIDTH SD 45.2 fL (36.4-46.3); WHITE BLOOD COUNT 9.16 K/uL (4.8-10.8)
[2018-04-22] MEDS: LACTATED RINGER'S 1000ML 1,000 ML IV SCH (07:38)
[2018-04-22] MEDS ORDERED: NURSING VERBAL MED ORDER ONE (07:45)
[2018-04-22 07:57] LABS: CALCIUM 8.4 mg/dl (8.5-10.1); CREATININE 0.8 mg/dl (0.60-1.20); POTASSIUM 4.2 mmol/L (3.5-5.1)
[2018-04-22] MEDS ORDERED: TRAM-453 PO (08:32)
[2018-04-22] MEDS ORDERED: PANTOprazole SOD 40 MG TAB PO SCH (09:00)
[2018-04-22] MEDS ORDERED: CETIRIZINE HCL 10 MG TAB PO SCH (09:00)
[2018-04-22] MEDS ORDERED: RANITIDINE HCL 150 MG TAB PO SCH (09:00)
--- NOTE | 2018-04-22 09:53 | Surgery Progress Note ---
Surgery Progress Note Date of Service Apr 22, 2018. Subjective Patient doing well, pain controlled. Objective Vital Signs: Date Time Temp Pulse Resp B/P (MAP) Pulse Ox O2 Delivery O2 Flow Rate FiO2 04/22/18 04:30 36.7 75 16 117/69 (85) 95 Room Air 04/22/18 02:00 36.7 77 16 130/83 (99) 91 Room Air 04/22/18 01:20 Room Air 04/22/18 01:04 Room Air 04/22/18 00:55 36.8 67 17 150/77 (101) 96 Room Air 04/21/18 23:30 36.5 75 16 144/95 (111) 94 Room Air 04/21/18 23:15 96 Room Air 04/21/18 23:00 36.8 75 18 144/87 (106) 96 Room Air 04/21/18 22:45 74 16 153/90 95 Room Air 04/21/18 22:35 83 16 160/95 100 Oxymask 3 04/21/18 22:25 88 20 174/94 100 Oxymask 5 04/21/18 22:18 36.5 92 21 172/95 100 Oxymask 10 04/21/18 20:08 36.8 85 18 171/89 99 Room Air 04/21/18 16:51 36.8 93 18 192/92 99 Room Air General Appearance: WD/WN, no apparent distress Abdomen: non distended, soft, + pertinent finding (incisions intact, dry, clean with dermabond) Laboratory Results: Results Past 24 Hours Test 04/21/18 18:50 04/22/18 00:10 04/22/18 06:49 Range/Units White Blood Count 10.25 9.16 4.8-10.8 K/uL Red Blood Count 4.86 4.54 4.2-5.4 M/uL Hemoglobin 13.4 12.2 12.0-16.0 g/dL Hematocrit 40.8 38.4 37-47 % Mean Corpuscular Volume 84.0 84.6 80-100 fL Mean Corpuscular Hemoglobin 27.6 26.9 25-34 pg Mean Corpuscular Hemoglobin Concent 32.8 31.8 32-36 g/dl Platelet Count 321 313 130-400 K/uL Mean Platelet Volume 9.2 9.7 7.4-10.4 fL Neutrophils (%) (Auto) 68.9 89.1 % Lymphocytes (%) (Auto) 21.1 7.8 % Monocytes (%) (Auto) 6.3 2.7 % Eosinophils (%) (Auto) 3.2 0.1 % Basophils (%) (Auto) 0.4 0.1 % Neutrophils # (Auto) 7.06 8.16 1.4-6.5 K/uL Lymphocytes # (Auto) 2.16 0.71 1.2-3.4 K/uL Monocytes # (Auto) 0.65 0.25 0.11-0.59 K/uL Eosinophils # (Auto) 0.33 0.01 0-0.5 K/uL Basophils # (Auto) 0.04 0.01 0-0.2 K/uL RDW Standard Deviation 44.4 45.2 36.4-46.3 fL RDW Coefficient of Variation 14.5 14.6 11.5-14.5 % Immature Granulocyte % (Auto) 0.1 0.2 % Immature Granulocyte # (Auto) 0.01 0.02 0.00-0.02 K/uL Prothrombin Time 10.5 9.0-12.0 SECONDS Prothromb Time International Ratio 1.0 0.9-1.1 Sodium Level 135 139 136-145 mmol/L Potassium Level 3.8 4.2 3.5-5.1 mmol/L Chloride Level 106 110 98-107 mmol/L Carbon Dioxide Level 21 22 21-32 mmol/L Anion Gap 8.0 7.0 3-11 mmol/L Blood Urea Nitrogen 15 13 7-18 mg/dl Creatinine 0.99 0.80 0.60-1.20 mg/dl Est Creatinine Clear Calc Drug Dose 91.6 113.3 ml/min Estimated GFR () 75.4 97.6 Estimated GFR (Non- 65.1 84.2 BUN/Creatinine Ratio 15.3 16.6 10-20 Random Glucose 79 117 70-99 mg/dl Calcium Level 8.6 8.4 8.5-10.1 mg/dl Total Bilirubin 0.3 0.2-1 mg/dl Aspartate Amino Transf (AST/SGOT) 16 15-37 U/L Alanine Aminotransferase (ALT/SGPT) 20 12-78 U/L Alkaline Phosphatase 93 45-117 U/L Troponin I < 0.015 0-0.045 ng/ml Total Protein 7.8 6.4-8.2 gm/dl Albumin 3.8 3.4-5.0 gm/dl Globulin 4.0 2.5-4.0 gm/dl Albumin/Globulin Ratio 1.0 0.9-2 Urine Color YELLOW Urine Appearance CLEAR CLEAR Urine pH 7.5 4.5-7.5 Urine Specific [place] 1.033 1.000-1.030 Urine Protein NEG NEG Urine Glucose (UA) NEG NEG Urine Ketones NEG NEG Urine Occult Blood TRACE NEG Urine Nitrite NEG NEG Urine Bilirubin NEG NEG Urine Urobilinogen NEG NEG Urine Leukocyte Esterase SMALL NEG Urine WBC (Auto) 5-10 0-5 /hpf Urine RBC (Auto) 0-4 0-4 /hpf Urine Hyaline Casts (Auto) 0 0-5 /lpf Urine Epithelial Cells (Auto) >30 0-5 /lpf Urine Bacteria (Auto) NEG NEG Assessment & Plan Patient seen and examined with Dr. Rand. Pain controlled, tolerating clear diet-- will advance to regular diet. Ok for discharge today. Return precautions provided. Patient to follow-up in General Surgery Clinic in 1 week.
[2018-04-22 10:00] VITALS: BP 117/69; PULSE 75; TEMP 36.7; O2SAT 95
--- NOTE | 2018-04-23 07:00 | Discharge Summary ---
Discharge Summary Date of Service Apr 23, 2018. Admission Date/Reason Apr 21, 2018 at 22:21 Acute Appendicitis. Discharge Date/Disposition Apr 22, 2018 Home Diagnosis Principal Diagnosis: Acute appendicitis Procedure(s) Performed laparoscopic appendectomy Medication Reconciliation Tramadol Hcl 50mg Tablets, 1 Tablet PO Q4H PRN for pain x 3 days. Disp: 12 Tablets. Admission Physical Exam As per Admitting History & Physical. Hospital Course 04/21/18: Patient is a 53F who presented to the ED this evening due to an outpatient CT scan suspicious for acute appendicitis. She had the scan due to RLQ pain starting earlier this morning upon waking. Denies any other associated symptoms. Labs in the ED showed WBC WNL w/ a left shift. At this time it was decided to take her to the OR for laparoscopic appendectomy, possible open. Pre- op antibiotics given, consents signed. The procedure was performed successfully with a laparoscopic approach without complications. The patient was then taken to the ICU for recovery and then admitted to med/surg for post-op care. 04/22/18: POD #1 s/p lap appy. Patient doing well, pain controlled, tolerating clear liquid diet, no N/V. Abdomen soft, non-distended. Patient was advanced to a regular diet which she tolerated without issue. She was discharged later today with a prescription for Tramadol to take as needed for pain relief. Return precautions given. Patient given instructions on wound care and limitations. Patient will follow up with Dr. love in 1-2 weeks. Patient invited to contact our office with any further questions or concerns. Discharge Instructions Please refer to the electronic Patient Visit Report (Discharge Instructions) for additional information.
== END 2018-04-22 10:27 | disposition home or self-care (01) ==
LOC: C.EDB 16:47 → C.MSW 22:21 → ENRESERV 22:42
PROVIDERS: ADMIT Surgery; ATTEND Surgery
DX: K35.80 Unspecified acute appendicitis (principal); E03.9 Hypothyroidism, unspecified; Z90.49 Acquired absence of other specified parts of digestive tract; Z88.2 Allergy status to sulfonamides; Z88.5 Allergy status to narcotic agent

== ENCOUNTER 2023-01-04 19:22 | Inpatient (IN) ==
[2023-01-04 20:16] LABS: Hematocrit (blood only) 41.7 % (37.0-47.0); Mean Corpuscular Hemoglobin 25.1 pg (25.0-34.0); Mean Corpuscular Hgb Conc 31.2 g/dL (32.0-36.0); Mean Corpuscular Volume 80.5 fL (80.0-100.0); Mean Platelet Volume 9.2 fL (9.4-12.4); Platelet Count 416 K/uL (130-400); RDW Coefficient of Variation 15.3 % (11.5-14.5); Red Blood Count 5.18 M/uL (4.20-5.40); White Blood Count 24.08 K/ul (4.8-10.8)
[2023-01-04 20:22] LABS: Albumin Globulin Ratio 1.2 (0.9-2); Albumin Level 3.8 gm/dl (3.4-5.0); BUN Creatinine Ratio 30.3 (10-20); Bilirubin,Total 0.9 mg/dl (0.2-1.0); Calcium 9.5 mg/dl (8.6-10.3); Est GFR (African American) 73.3 ml/min; Est GFR (Non-African American) 63.3 ml/min; Globulin 3.2 gm/dl (2.5-4.0); Potassium 4.3 mmol/L (3.5-5.1)
--- NOTE | 2023-01-04 20:26 | Emergency Department Note ---
Impression & Plan Nausea, vomiting, and diarrhea, Leukocytosis, Transaminitis, UTI (urinary tract infection) ED Provider Note HISTORY OF PRESENT ILLNESS: Patient is a 57-year-old female presenting with lower abdominal pain, vomiting and diarrhea. Patient reports symptoms started today. She locates the abdominal pain diffusely across her lower abdomen. Reports has had multiple episodes of vomiting and liquid diarrhea today. Reports that she noticed some trace blood in her stool around 2 hours ago. She called 911 given her continued symptoms. She was given 4 mg IV Zofran, 100 mcg IV fentanyl and 500 cc normal saline prehospital. She denies any chest pain or shortness of breath. Denies any recent fevers. Denies any recent exposure to sick contacts. Abdominal surgical history significant for a cholecystectomy and appendectomy. She denies any dysuria or hematuria. Denies any recent antibiotic use ROS: as above PHYSICAL EXAM: Constitutional: Patient appears in no acute distress. Elevated BMI HENT: Head: Normocephalic and atraumatic. Eyes: EOMI, PERRL Mouth/Throat: Mucous membranes moist. Neck: Trachea midline. Neck supple. Cardiovascular: RRR, No murmurs, rubs or gallops. Intact distal pulses. Pulmonary/Chest: No respiratory distress. Breath sounds clear and equal bilaterally. No wheezes or rales. Abdominal: BS +. Abdomen soft, no tenderness, rebound or guarding. Musculoskeletal: No edema, tenderness or deformity noted. Skin: Warm and dry. No rash, erythema, pallor or cyanosis Psychiatric: Appropriate mood and affect for situation. Neurological: Alert and keenly responsive. CN II-XII grossly intact, moving all extremities equally and fully. MDM: - Vitals signs stable. - History obtained via patient. Patient presents with abdominal pain, vomiting and diarrhea. Symptoms started today. Locates pain diffusely across her lower abdomen. Denies any chest pain or shortness of breath. Denies any recent sick contact exposures. Denies any recent fevers. Has had multiple episodes of vomiting and diarrhea today. Denies any recent antibiotic use - Chronic conditions affecting care: gastritis - Differential diagnoses include, but are not limited to: diverticulitis; ischemic colitis; UTI; viral syndrome - Order placed for continuous cardiac monitoring. At this time, monitor showed rate of 75 bpm with normal sinus rhythm, per my interpretation. - External medical records reviewed. EMS run sheet reviewed. Patient was vitally stable in route other than a transient episode of hypotension to 90s over 60s after administration of fentanyl. Patient was given 4 mg IV Zofran, 100 mcg of IV fentanyl and 500 cc of normal saline prehospital. - Laboratory workup interpreted by myself showed leukocytosis (WBC 24.08); with left shift; normal electrolytes; elevated BUN (30); transaminitis (AST 125; ALT 58); normal troponin; normal lipase; normal total bilirubin - UA concerning for infection. Noted to have elevated bilirubin. - Blood cultures ordered. - Viral panel negative. - CT abdomen/pelvis with IV contrast showed moderate left-sided colitis. Also noted to have increased biliary ductal dilation from comparison study. However, patient's serum bilirubin levels WNL. However, she has noted elevated levels of bilirubin in urine. Will likely need GI consult on inhospital setting. - Patient given 1L NS and 2g IV rocephin. - Discussion was had with rn social services about patient's case and need for admission - Hospitalist, Dr. Hurley, consulted for admission. [facility] ASSESSMENT AND PLAN: Diagnosis: nausea, vomiting and diarrhea; transaminitis; UTI; leukocytosis Plan: admit Past Med/Surg History Medical History (Updated 01/04/23 @ 23:06 by Hilaria Kaur MD) Migraines Surgical History History of cholecystectomy Family History Other Diabetes Heart disease Hypertension Social History Smoking Status: Never smoker Preferred Language: Czech Feels Safe at Home: Yes Allergies Allergies Allergy/AdvReac Type Severity Reaction Status Date / Time adhesive Allergy Intermediate ITCHY, Verified 01/04/23 21:42 BLISTERY-- SURGICAL TAPE azithromycin [From Zithromax] Allergy Intermediate Hives Verified 01/04/23 21:42 Sulfa (Sulfonamide Allergy Intermediate hives Verified 01/04/23 21:42 Antibiotics) sulfamethoxazole Allergy Intermediate Hives Verified 01/04/23 21:42 [From Bactrim] trimethoprim [From Bactrim] Allergy Intermediate Hives Verified 01/04/23 21:42 oxycodone AdvReac Intermediate itch all Verified 01/04/23 21:42 over from Percocet Home Meds Home Medications Medication Instructions Recorded Confirmed [id number] 250 2 tab PO Q6H PRN Headache 11/02/18 01/04/23 mg-250 mg-65 mg tablet (Excedrin Migraine) cetirizine 10 mg tablet 10 mg PO QAM 11/02/18 01/04/23 clobetasol 0.05 % topical cream 1 applic topical BID PRN Skin 11/02/18 01/04/23 Irritation levothyroxine 25 mcg tablet 25 mcg PO DAILY 11/02/18 01/04/23 naproxen 500 mg tablet 500 mg PO BID 11/02/18 01/04/23 omeprazole 20 mg tablet,delayed 20 mg PO BID 11/02/18 01/04/23 release famotidine 20 mg tablet 20 mg PO BID 04/05/22 01/04/23 lisinopril 10 mg tablet 10 mg PO DAILY 04/05/22 01/04/23 ondansetron HCl 8 mg tablet 8 mg PO Q8H PRN NAUSEA/VOMITING 04/05/22 01/04/23 rimegepant 75 mg disintegrating 75 mg PO Q OTHER DAY 04/05/22 01/04/23 tablet (Nurtec ODT) cholecalciferol (vitamin D3) 25 25 mcg PO DAILY 01/04/23 01/04/23 mcg (1,000 unit) capsule (Vitamin D3) naratriptan 1 mg tablet 1 mg PO DIRECTED PRN Migraine 01/04/23 01/04/23 Headache Results & Data (ED) Vital Signs Vital Signs - 24 hr 01/04/23 18:49 01/04/23 20:02 01/04/23 21:01 Temperature 37.1 C Temperature Source Oral Pulse Rate 76 Pulse Rate [Right Apical] 88 Pulse Rate from SpO2 Sensor Respiratory Rate 21 16 Respiratory Effort / Characteristics Non-Labored Non-Labored Spontaneous Respiratory Depth Normal Normal Respiratory Pattern Regular Blood Pressure 111/52 L Blood Pressure [Left Arm] 115/67 Blood Pressure Mean 71 Blood Pressure Mean [Left Arm] 83 Pulse Oximetry 98 98 98 Oxygen Delivery Method Room Air Room Air Room Air Sepsis Recent Fever Within 48 Hours No Sepsis New/Unexplained Change in Mental Status No Sepsis Action Taken by Nursing No Action Required 01/04/23 21:02 01/04/23 22:00 01/04/23 22:39 Temperature Temperature Source Pulse Rate 89 78 82 Pulse Rate [Right Apical] Pulse Rate from SpO2 Sensor 87 77 83 Respiratory Rate 21 19 24 Respiratory Effort / Characteristics Respiratory Depth Respiratory Pattern Blood Pressure 132/78 134/67 143/65 H Blood Pressure [Left Arm] Blood Pressure Mean 96 89 91 Blood Pressure Mean [Left Arm] Pulse Oximetry 99 98 97 Oxygen Delivery Method Room Air Room Air Room Air Sepsis Recent Fever Within 48 Hours Sepsis New/Unexplained Change in Mental Status Sepsis Action Taken by Nursing 01/04/23 23:00 Temperature Temperature Source Pulse Rate 96 H Pulse Rate [Right Apical] Pulse Rate from SpO2 Sensor 93 H Respiratory Rate 16 Respiratory Effort / Characteristics Respiratory Depth Respiratory Pattern Blood Pressure 101/69 Blood Pressure [Left Arm] Blood Pressure Mean 79 Blood Pressure Mean [Left Arm] Pulse Oximetry 97 Oxygen Delivery Method Room Air Sepsis Recent Fever Within 48 Hours Sepsis New/Unexplained Change in Mental Status Sepsis Action Taken by Nursing Laboratory Data 01/04/23 19:40 01/04/23 19:40 Lab Results 01/04/23 01/04/23 01/04/23 Range/Units 19:40 19:40 20:18 WBC 24.08 H (4.8-10.8) K/ul RBC 5.18 (4.20-5.40) M/uL Hgb 13.0 (12.0-16.0) g/dl Hct 41.7 (37.0-47.0) % MCV 80.5 (80.0-100.0) fL MCH 25.1 (25.0-34.0) pg MCHC 31.2 L (32.0-36.0) g/dL RDW Std Deviation 44.0 (36.4-46.3) fL RDW Coeff of Radha 15.3 H (11.5-14.5) % Plt Count 416 H (130-400) K/uL MPV 9.2 L (9.4-12.4) fL Immature Gran % (Auto) 0.4 % Neut % (Auto) 90.2 % Lymph % (Auto) 2.5 % Walton % (Auto) 6.6 % Eos % (Auto) 0.0 % Baso % (Auto) 0.3 % Neut # (Auto) 21.70 H (1.40-6.50) K/uL Lymph # (Auto) 0.61 L (1.2-3.4) K/uL Walton # (Auto) 1.59 H (0.11-0.59) K/uL Eos # (Auto) 0.00 (0-0.50) K/uL Baso # (Auto) 0.08 (0-0.2) K/uL Immature Gran # (Auto) 0.10 (0.01-0.20) K/uL Sodium 137 (136-145) mmol/L Potassium 4.3 (3.5-5.1) mmol/L Chloride 106 (98-107) mmol/L Carbon Dioxide 22 (21-32) mmol/L Anion Gap 9 (3-11) BUN 30 H (6-23) mg/dl Creatinine 0.99 (0.6-1.2) mg/dl Est Cr Clr Drug Dosing 90.0 ml/min Est GFR ( Amer) 73.3 ml/min Est GFR (Non-Af Amer) 63.3 ml/min BUN/Creatinine Ratio 30.3 H (10-20) Glucose 131 H (70-99(Fasting)) mg/dl Calcium 9.5 (8.6-10.3) mg/dl Total Bilirubin 0.9 (0.2-1.0) mg/dl AST 125 H (13-39) U/L ALT 58 H (7-52) U/L Alkaline Phosphatase 207 H (34-104) U/L Troponin I High Sens 7.9 (0-14) pg/ml Total Protein 7.0 (6.0-8.3) gm/dl Albumin 3.8 (3.4-5.0) gm/dl Globulin 3.2 (2.5-4.0) gm/dl Albumin/Globulin Ratio 1.2 (0.9-2) Lipase 21 (11-82) U/L Urine Color Urine Appearance (Clear) Urine pH (4.5-7.5) Ur Specific [place] (1.000-1.030) Urine Protein (Negative) Urine Glucose (UA) (Negative) Urine Ketones (Negative) Urine Blood (Negative) Urine Nitrite (Negative) Urine Bilirubin (Negative) Urine Urobilinogen (Negative) Ur Leukocyte Esterase (Negative) Urine WBC (Auto) (0-5) /hpf Urine RBC (Auto) (0-4) /hpf U Hyaline Cast (Auto) (0-5) /lpf U Epithel Cells (Auto) (0-5) /lpf Urine Bacteria (Auto) (Negative) Urine Mucus (None Prsent) POC Ur Test (NEG) Adenovirus (PCR) (NotDetected) B. pertussis DNA (PCR) (NotDetected) B.parapertussis DNA PCR (NotDetected) C. pneumoniae DNA (PCR) (NotDetected) Coronavirus OC43 (PCR) (NotDetected) Coronavirus HKU1 (PCR) (NotDetected) Coronavirus 229E (PCR) (NotDetected) SARS-CoV-2 (PCR) (NotDetected) Coronavirus NL63 (PCR) (NotDetected) Human Metapneumovir PCR (NotDetected) Influenza Type A (PCR) (NotDetected) Influenza Type B (PCR) (NotDetected) M. pneumoniae (PCR) (NotDetected) Parainfluenza 1 (PCR) (NotDetected) Parainfluenza 2 (PCR) (NotDetected) Parainfluenza 3 (PCR) (NotDetected) Parainfluenza 4 (PCR) (NotDetected) RSV (PCR) (NotDetected) Entero/Rhino (PCR) (NotDetected) SARS-CoV-2, RNA, NAAT NEGATIVE (NEGATIVE) 01/04/23 01/04/23 01/04/23 Range/Units 21:03 21:03 21:06 WBC (4.8-10.8) K/ul RBC (4.20-5.40) M/uL Hgb (12.0-16.0) g/dl Hct (37.0-47.0) % MCV (80.0-100.0) fL MCH (25.0-34.0) pg MCHC (32.0-36.0) g/dL RDW Std Deviation (36.4-46.3) fL RDW Coeff of Radha (11.5-14.5) % Plt Count (130-400) K/uL MPV (9.4-12.4) fL Immature Gran % (Auto) % Neut % (Auto) % Lymph % (Auto) % Walton % (Auto) % Eos % (Auto) % Baso % (Auto) % Neut # (Auto) (1.40-6.50) K/uL Lymph # (Auto) (1.2-3.4) K/uL Walton # (Auto) (0.11-0.59) K/uL Eos # (Auto) (0-0.50) K/uL Baso # (Auto) (0-0.2) K/uL Immature Gran # (Auto) (0.01-0.20) K/uL Sodium (136-145) mmol/L Potassium (3.5-5.1) mmol/L Chloride (98-107) mmol/L Carbon Dioxide (21-32) mmol/L Anion Gap (3-11) BUN (6-23) mg/dl Creatinine (0.6-1.2) mg/dl Est Cr Clr Drug Dosing ml/min Est GFR ( Amer) ml/min Est GFR (Non-Af Amer) ml/min BUN/Creatinine Ratio (10-20) Glucose (70-99(Fasting)) mg/dl Calcium (8.6-10.3) mg/dl Total Bilirubin (0.2-1.0) mg/dl AST (13-39) U/L ALT (7-52) U/L Alkaline Phosphatase (34-104) U/L Troponin I High Sens (0-14) pg/ml Total Protein (6.0-8.3) gm/dl Albumin (3.4-5.0) gm/dl Globulin (2.5-4.0) gm/dl Albumin/Globulin Ratio (0.9-2) Lipase (11-82) U/L Urine Color Heard Urine Appearance Cloudy A (Clear) Urine pH 5.0 (4.5-7.5) Ur Specific [place] 1.030 (1.000-1.030) Urine Protein 1+ H (Negative) Urine Glucose (UA) Negative (Negative) Urine Ketones Trace H (Negative) Urine Blood Negative (Negative) Urine Nitrite Positive A (Negative) Urine Bilirubin 3+ H (Negative) Urine Urobilinogen Negative (Negative) Ur Leukocyte Esterase 2+ H (Negative) Urine WBC (Auto) 5-10 H (0-5) /hpf Urine RBC (Auto) 5-10 H (0-4) /hpf U Hyaline Cast (Auto) 0 (0-5) /lpf U Epithel Cells (Auto) >30 H (0-5) /lpf Urine Bacteria (Auto) Negative (Negative) Urine Mucus Present A (None Prsent) POC Ur Test NEG (NEG) Adenovirus (PCR) Not Detected (NotDetected) B. pertussis DNA (PCR) Not Detected (NotDetected) B.parapertussis DNA PCR Not Detected (NotDetected) C. pneumoniae DNA (PCR) Not Detected (NotDetected) Coronavirus OC43 (PCR) Not Detected (NotDetected) Coronavirus HKU1 (PCR) Not Detected (NotDetected) Coronavirus 229E (PCR) Not Detected (NotDetected) SARS-CoV-2 (PCR) Not Detected (NotDetected) Coronavirus NL63 (PCR) Not Detected (NotDetected) Human Metapneumovir PCR Not Detected (NotDetected) Influenza Type A (PCR) Not Detected (NotDetected) Influenza Type B (PCR) Not Detected (NotDetected) M. pneumoniae (PCR) Not Detected (NotDetected) Parainfluenza 1 (PCR) Not Detected (NotDetected) Parainfluenza 2 (PCR) Not Detected (NotDetected) Parainfluenza 3 (PCR) Not Detected (NotDetected) Parainfluenza 4 (PCR) Not Detected (NotDetected) RSV (PCR) Not Detected (NotDetected) Entero/Rhino (PCR) Not Detected (NotDetected) SARS-CoV-2, RNA, NAAT (NEGATIVE) Administered Medications Discontinued Medications Ceftriaxone Sodium (Rocephin) 2,000 mg in 70 mls @ 140 mls/hr IV NOW STA Stop: 01/04/23 22:01 Last Admin: 01/04/23 23:16 Dose: 140 mls/hr Documented By: JOSSIE Sodium Chloride (Nss 1000ml) 1,000 mls @ 999 mls/hr IV .Q1H1M ONE Stop: 01/04/23 23:29 Last Admin: 01/04/23 22:35 Dose: 999 mls/hr Documented By: JOSSIE Ioversol (Optiray 350 100ml) 93 ml IV ONCE ONE Stop: 01/04/23 21:31 Last Admin: 01/04/23 21:30 Dose: 93 ml Documented By: ADOLFO Discharge Plan Visit Data Chief Complaint: Abdominal Pain Stated Complaint: Vomiting, Bloody Diarrhea ED Provider: Hilaria Kaur Discharge Problem: Nausea, vomiting, and diarrhea, Leukocytosis, Transaminitis, UTI (urinary tract infection) Forms Stand Alone Forms: [facility] Prescriptions Prescriptions: No Action cetirizine 10 mg Tablet 10 mg PO QAM clobetasol 0.05 % Cream 1 applic TOPICAL BID PRN (Reason: Skin Irritation) levothyroxine 25 mcg Tablet 25 mcg PO DAILY Excedrin Migraine 250-250-65 mg Tablet 2 tab PO Q6H PRN (Reason: Headache) naproxen 500 mg Tablet 500 mg PO BID omeprazole 20 mg Tablet,Delayed Release (Dr/Ec) 20 mg PO BID naratriptan [Amerge] 1 mg Tablet 1 mg PO DIRECTED PRN (Reason: Migraine Headache) Rx Instructions: take 1 tablet at onset of headache; if no relief, may repeat 1 tablet after at least 4 hrs cholecalciferol (vitamin D3) [Vitamin D3] 25 mcg (1,000 unit) Capsule 25 mcg PO DAILY ondansetron HCl 8 mg tablet 8 mg PO Q8H PRN (Reason: NAUSEA/VOMITING) famotidine 20 mg tablet 20 mg PO BID lisinopril 10 mg tablet 10 mg PO DAILY Nurtec ODT 75 mg tablet,disintegrating 75 mg PO Q OTHER DAY Referrals Referrals: Mitali Gutierrez DO [Primary Care Provider] -
[2023-01-04 20:29] LABS: Troponin I High Sensitivity 7.9 pg/ml (0-14)
[2023-01-04 20:35] LABS: Basophils # (auto) 0.08 K/uL (0-0.2); Basophils % (auto) 0.3 %; Immature Granulocytes % (auto) 0.4 %; Lymphocytes # (auto) 0.61 K/uL (1.2-3.4); Lymphocytes % (auto) 2.5 %; Monocytes # (auto) 1.59 K/uL (0.11-0.59); Monocytes % (auto) 6.6 %; Neutrophils % (auto) 90.2 %
[2023-01-04 21:20] LABS: Appearance Urine Cloudy (Clear); Bacteria Urine Automated Negative (Negative); Blood Urine Negative (Negative); Color Urine Orange; Epithelial Cell Urine Auto >30 /lpf (0-5); Glucose Urine UA Negative (Negative); Ketones Urine Trace (Negative); Leukocyte Esterase Urine 2+ (Negative); Nitrite Urine Positive (Negative); Protein Urine 1+ (Negative); Urobilinogen Urine Negative (Negative)
[2023-01-04 21:23] LABS: Bilirubin Urine 3+ (Negative)
[2023-01-04] MEDS ORDERED: OPTIRAY 350 100ml IV ONE (21:30)
[2023-01-04] MEDS ORDERED: cefTRIAXone SODIUM 2,000 MG/70 ML BAG IV STA (21:32)
[2023-01-04 21:41] LABS: Cast Urine Automated 0 /lpf (0-5); Mucus Urine Present (None Prsent)
[2023-01-04] MEDS ORDERED: SODIUM CHLORIDE 0.9% 1000ML 1,000 ML IV ONE ×2 (22:29→23:20)
[2023-01-04 22:42] LABS: Adenovirus PCR Not Detected (NotDetected); Bordetella parapertussis PCR Not Detected (NotDetected); Bordetella pertussis PCR Not Detected (NotDetected); Chlamydia pneumoniae PCR Not Detected (NotDetected); Coronavirus 229E PCR Not Detected (NotDetected); Coronavirus CoV-2 (COVID19)PCR Not Detected (NotDetected); Coronavirus HKU1 PCR Not Detected (NotDetected); Coronavirus NL63 PCR Not Detected (NotDetected); Coronavirus OC43PCR Not Detected (NotDetected); Human Metapneumovirus PCR Not Detected (NotDetected); Influenza A PCR Not Detected (NotDetected); Influenza B PCR Not Detected (NotDetected); Mycoplasma pneumoniae PCR Not Detected (NotDetected); Parainfluenza Virus 1 PCR Not Detected (NotDetected); Parainfluenza Virus 2 PCR Not Detected (NotDetected); Parainfluenza Virus 3 PCR Not Detected (NotDetected); Parainfluenza Virus 4 PCR Not Detected (NotDetected); Respiratory Syncytial VirusPCR Not Detected (NotDetected); Rhinovirus/Enterovirus PCR Not Detected (NotDetected)
[2023-01-04] MEDS ORDERED: metroNIDAZOLE 500 MG/100 ML BAG IV STA (23:23)
--- NOTE | 2023-01-04 23:32 | CT Scan Report ---
Exam(s): CT ABDOMEN + PELVIS With Contrast EXAM: CT Abdomen and Pelvis With Intravenous Contrast CLINICAL HISTORY: Reason for exam: abdominal pain; vomiting. TECHNIQUE: Axial computed tomography images of the abdomen and pelvis with intravenous contrast. CTDI is 31.5 mGy and DLP is 1670 mGy-cm. Automated exposure control was utilized for the study. A dose lowering technique was utilized adhering to the principles of ALARA. CONTRAST: Contrast must be dictated COMPARISON: Dated 04/05/22. FINDINGS: Lung bases: Unremarkable. No mass. No consolidation. ABDOMEN: Liver: There is moderate intra-and extra hepatic biliary ductal dilatation which appears progressed from the prior study. Gallbladder and bile ducts: The patient is status post cholecystectomy. Pancreas: There is fatty replacement of the pancreas. No ductal dilation. Spleen: Unremarkable. No splenomegaly. Adrenals: Unremarkable. No mass. Kidneys and ureters: Unremarkable. No solid mass. No hydronephrosis. Stomach and bowel: There is moderate colitis extending from the splenic flexure through the sigmoid with wall thickening and pericolonic stranding. No evidence for perforation. No obstruction. PELVIS: Appendix: The patient is status post appendectomy. Bladder: Unremarkable. No mass. Reproductive: Unremarkable as visualized. ABDOMEN and PELVIS: Intraperitoneal space: Unremarkable. No free air. No significant fluid collection. Bones/joints: There are degenerative changes of the thoracolumbar spine. No acute fracture. No dislocation. Soft tissues: There are bilateral breast implants with associated calcification. Vasculature: Unremarkable. No abdominal aortic aneurysm. Lymph nodes: Unremarkable. No enlarged lymph nodes. Other findings: There is a baclofen pump in place. IMPRESSION: 1. Moderate left-sided colitis. 2. Significantly increased biliary ductal dilatation from the comparison study. Please correlate with bilirubin levels and consider MRCP for further evaluation as warranted. Electronically signed by: Janak Crowell MD 01/04/23 23:31 PM
[2023-01-04] MEDS ORDERED: KETOROLAC TROMETHAMINE 15 MG/ML VIAL IV ONE (23:45)
[2023-01-04 23:47] LABS: Magnesium 2.3 mg/dl (1.7-2.4)
[2023-01-05 01:23] LABS: Hematocrit (blood only) 36.1 % (37.0-47.0); Hemoglobin 11.4 g/dl (12.0-16.0)
--- NOTE | 2023-01-05 02:09 | History & Physical Report ---
Date of Service January 05, 2023 Assessment & Plan (1) Abdominal pain: Plan: Multifactorial : Hemorrhagic colitis Complicated UTI Biliary pathology Anemia secondary to hemorrhagic colitis Aspirin for DVT prophylaxis for recent left ankle surgery contributory hypertension, BP stable GERD stable on regimen migraine, at baseline hypothyroidism, euthyroid as of TSH last year Hyperglycemia rule out DM Medical telemetry CS, Cefepime, Flagyl MRCP N.p.o. until MRCP results known Appropriate to hold aspirin given LGIB follow H&H, transfuse PRBC if hemoglobin less than 7 and or for symptomatic anemia GI consult Re: Colitis, abnormal LFTs Check hemoglobin A1c DVT prophylaxis. SCDs Re: L GIB Full code Text document was generated using [employer] voice recognition software. It may contain grammatical or spelling errors. Kindly contact undersigned for clarification of any documentation item in question. History of Present Illness Chief Complaint: Abdominal pain, bloody diarrhea Primary Care Provider: Mitali Gutierrez, History obtained from patient and records. Medical history significant for hypertension, GERD, migraine, hypothyroidism. Last [facility] confinement 2017 under General Surgery service for acute appendicitis status post surgery. Patient underwent right ankle fracture surgery at [facility] last September 2022. Instructed to take aspirin daily for postop DVT prophylaxis. Patient set to return to work next month. Yesterday, patient noted achy abdominal pain followed by bilious emesis and watery diarrhea later noted to be bloody. No chest pain, no SOB. Usual migraine headache symptoms. Unrecalled antibiotic few weeks ago for possible UTI. Denies inordinate intake of Tylenol. Denies recent EtOH intake. At the ER, ceftriaxone administered at the ER for sepsis. Medical History as above No prior endoscopies. Surgical History : Right ankle surgery Family History : Laparoscopic cholecystectomy, dental surgery, breast surgery, left foot surgery, spinal cord stimulator placement Personal/Social history : Non-smoker, no EtOH intake, [facility] scheduling appointment Allergies Allergy/AdvReac Type Severity Reaction Status Date / Time adhesive Allergy Intermediate ITCHY, Verified 01/04/23 21:42 BLISTERY-- SURGICAL TAPE azithromycin [From Zithromax] Allergy Intermediate Hives Verified 01/04/23 21:42 Sulfa (Sulfonamide Allergy Intermediate hives Verified 01/04/23 21:42 Antibiotics) sulfamethoxazole Allergy Intermediate Hives Verified 01/04/23 21:42 [From Bactrim] trimethoprim [From Bactrim] Allergy Intermediate Hives Verified 01/04/23 21:42 oxycodone AdvReac Intermediate itch all Verified 01/04/23 21:42 over from Percocet Home Medications Medication Instructions Recorded Confirmed Type [id number]-[id number]-[id number] 250 2 tab PO Q6H PRN Headache 11/02/18 01/04/23 History mg-250 mg-65 mg tablet (Excedrin Migraine) cetirizine 10 mg tablet 10 mg PO QAM 11/02/18 01/04/23 History clobetasol 0.05 % topical cream 1 applic topical BID PRN Skin 11/02/18 01/04/23 History Irritation levothyroxine 25 mcg tablet 25 mcg PO DAILY 11/02/18 01/04/23 History naproxen 500 mg tablet 500 mg PO BID 11/02/18 01/04/23 History omeprazole 20 mg tablet,delayed 20 mg PO BID 11/02/18 01/04/23 History release famotidine 20 mg tablet 20 mg PO BID 04/05/22 01/04/23 History lisinopril 10 mg tablet 10 mg PO DAILY 04/05/22 01/04/23 History ondansetron HCl 8 mg tablet 8 mg PO Q8H PRN NAUSEA/VOMITING 04/05/22 01/04/23 H istory rimegepant 75 mg disintegrating 75 mg PO Q OTHER DAY 04/05/22 01/04/23 History tablet (Nurtec ODT) cholecalciferol (vitamin D3) 25 25 mcg PO DAILY 01/04/23 01/04/23 History mcg (1,000 unit) capsule (Vitamin D3) naratriptan 1 mg tablet 1 mg PO DIRECTED PRN Migraine 01/04/23 01/04/23 History Headache Past Med/Surg History Medical History (Updated 01/05/23 @ 09:17 by Erik Hurley MD) Migraines Surgical History History of cholecystectomy Family History Other Diabetes Heart disease Hypertension Social History Smoking Status: Never smoker Hx Alcohol Use: No Hx Substance Use: No Preferred Language: Russian Communication Ability: Effective Biological Chemist Required: No Beliefs That Will Affect Care: None Current Living Situation: Spouse Other Information That Helps Us Care for You: No Feels Safe at Home: Yes Safety Concerns: Feels Safe At This Time Assistive Devices: Walker Review of Systems Review of Systems: As per HPI, all other systems reviewed and negative Physical Exam Physical Exam: GENERAL: Comfortable, pleasant, obese, no respiratory distress SKIN: Normal color, warm HEENT: [place] palpebral conjunctivae, no ptosis, dry buccal mucosa NECK : Supple, short neck, no tenderness CHEST : CTA, no tenderness HEART : RRR, no obvious murmurs ABDOMEN: Some distention, hypogastric tenderness EXTREMITIES : Minimal LE swelling, no LE tenderness, no other conspicuous deformities noted NEUROLOGIC : Coherent, no facial asymmetry, no other gross focality Results & Data Results & Data Vital Signs (Past 12 Hours) Vital Signs Temp Pulse Pulse Resp BP BP Pulse Ox 01/05/23 01:30 72 17 95 01/05/23 01:00 70 18 123/73 96 01/05/23 00:00 76 19 134/79 96 01/04/23 23:30 89 17 116/79 96 01/04/23 23:00 96 H 16 101/69 97 01/04/23 22:39 82 24 143/65 H 97 01/04/23 22:00 78 19 134/67 98 01/04/23 21:02 89 21 132/78 99 01/04/23 21:01 88 16 115/67 98 01/04/23 20:02 98 01/04/23 18:49 37.1 C 76 21 111/52 L 98 O2 Del Method 01/05/23 01:30 Room Air 01/05/23 01:00 Room Air 01/05/23 00:00 Room Air 01/04/23 23:30 Room Air 01/04/23 23:00 Room Air 01/04/23 22:39 Room Air 01/04/23 22:00 Room Air 01/04/23 21:02 Room Air 01/04/23 21:01 Room Air 01/04/23 20:02 Room Air 01/04/23 18:49 Room Air Laboratory Results Laboratory Results WBC 24.08 K/ul (4.8-10.8) H 01/04/23 19:40 RBC 5.18 M/uL (4.20-5.40) 01/04/23 19:40 Hgb 11.4 g/dl (12.0-16.0) L 01/05/23 01:01 Hct 36.1 % (37.0-47.0) L 01/05/23 01:01 MCV 80.5 fL (80.0-100.0) 01/04/23 19:40 MCH 25.1 pg (25.0-34.0) 01/04/23 19:40 MCHC 31.2 g/dL (32.0-36.0) L 01/04/23 19:40 RDW Std Deviation 44.0 fL (36.4-46.3) 01/04/23 19:40 RDW Coeff of Radha 15.3 % (11.5-14.5) H 01/04/23 19:40 Plt Count 416 K/uL (130-400) H 01/04/23 19:40 MPV 9.2 fL (9.4-12.4) L 01/04/23 19:40 Immature Gran % (Auto) 0.4 % 01/04/23 19:40 Neut % (Auto) 90.2 % 01/04/23 19:40 Lymph % (Auto) 2.5 % 01/04/23 19:40 [place] % (Auto) 6.6 % 01/04/23 19:40 Eos % (Auto) 0.0 % 01/04/23 19:40 Baso % (Auto) 0.3 % 01/04/23 19:40 Neut # (Auto) 21.70 K/uL (1.40-6.50) H 01/04/23 19:40 Lymph # (Auto) 0.61 K/uL (1.2-3.4) L 01/04/23 19:40 [place] # (Auto) 1.59 K/uL (0.11-0.59) H 01/04/23 19:40 Eos # (Auto) 0.00 K/uL (0-0.50) 01/04/23 19:40 Baso # (Auto) 0.08 K/uL (0-0.2) 01/04/23 19:40 Immature Gran # (Auto) 0.10 K/uL (0.01-0.20) 01/04/23 19:40 Sodium 137 mmol/L (136-145) 01/04/23 19:40 Potassium 4.3 mmol/L (3.5-5.1) 01/04/23 19:40 Chloride 106 mmol/L (98-107) 01/04/23 19:40 Carbon Dioxide 22 mmol/L (21-32) 01/04/23 19:40 Anion Gap 9 (3-11) 01/04/23 19:40 BUN 30 mg/dl (6-23) H 01/04/23 19:40 Creatinine 0.99 mg/dl (0.6-1.2) 01/04/23 19:40 Est Cr Clr Drug Dosing 90.0 ml/min 01/04/23 19:40 Est GFR ( Amer) 73.3 ml/min 01/04/23 19:40 Est GFR (Non-Af Amer) 63.3 ml/min 01/04/23 19:40 BUN/Creatinine Ratio 30.3 (10-20) H 01/04/23 19:40 Glucose 131 mg/dl (70-99(Fasting)) H 01/04/23 19:40 Lactate 1.1 mmol/L (0.4-2.0) 01/05/23 01:01 Calcium 9.5 mg/dl (8.6-10.3) 01/04/23 19:40 Magnesium 2.3 mg/dl (1.7-2.4) 01/04/23 19:40 Total Bilirubin 0.9 mg/dl (0.2-1.0) 01/04/23 19:40 AST 125 U/L (13-39) H 01/04/23 19:40 ALT 58 U/L (7-52) H 01/04/23 19:40 Alkaline Phosphatase 207 U/L (34-104) H 01/04/23 19:40 Troponin I High Sens 7.9 pg/ml (0-14) 01/04/23 19:40 Total Protein 7.0 gm/dl (6.0-8.3) 01/04/23 19:40 Albumin 3.8 gm/dl (3.4-5.0) 01/04/23 19:40 Globulin 3.2 gm/dl (2.5-4.0) 01/04/23 19:40 Albumin/Globulin Ratio 1.2 (0.9-2) 01/04/23 19:40 Lipase 21 U/L (11-82) 01/04/23 19:40 Procalcitonin 4.74 ng/ml (0-0.5) H 01/04/23 22:52 Urine Color [place] 01/04/23 21:03 Urine Appearance Cloudy (Clear) A 01/04/23 21:03 Urine pH 5.0 (4.5-7.5) 01/04/23 21:03 Ur Specific [place] 1.030 (1.000-1.030) 01/04/23 21:03 Urine Protein 1+ (Negative) H 01/04/23 21:03 Urine Glucose (UA) Negative (Negative) 01/04/23 21: Urine Ketones Trace (Negative) H 01/04/23 21: Urine Blood Negative (Negative) 01/04/23 21: Urine Nitrite Positive (Negative) A 01/04/23 21: Urine Bilirubin 3+ (Negative) H 01/04/23 21:03 Urine Urobilinogen Negative (Negative) 01/04/23 21:03 Ur Leukocyte Esterase 2+ (Negative) H 01/04/23 21:03 Urine WBC (Auto) 5-10 /hpf (0-5) H 01/04/23 21:03 Urine RBC (Auto) 5-10 /hpf (0-4) H 01/04/23 21:03 U Hyaline Cast (Auto) 0 /lpf (0-5) 01/04/23 21:03 U Epithel Cells (Auto) >30 /lpf (0-5) H 01/04/23 21:03 Urine Bacteria (Auto) Negative (Negative) 01/04/23 21:03 Urine Mucus Present (None Prsent) A 01/04/23 21:03 POC Ur Test NEG (NEG) 01/04/23 21:06 Adenovirus (PCR) Not Detected (NotDetected) 01/04/23 21:03 B. pertussis DNA (PCR) Not Detected (NotDetected) 01/04/23 21:03 B.parapertussis DNA PCR Not Detected (NotDetected) 01/04/23 21:03 C. pneumoniae DNA (PCR) Not Detected (NotDetected) 01/04/23 21:03 Coronavirus OC43 (PCR) Not Detected (NotDetected) 01/04/23 21:03 Coronavirus HKU1 (PCR) Not Detected (NotDetected) 01/04/23 21:03 Coronavirus 229E (PCR) Not Detected (NotDetected) 01/04/23 21:03 SARS-CoV-2 (PCR) Not Detected (NotDetected) 01/04/23 21:03 Coronavirus NL63 (PCR) Not Detected (NotDetected) 01/04/23 21:03 Human Metapneumovir PCR Not Detected (NotDetected) 01/04/23 21:03 Influenza Type A (PCR) Not Detected (NotDetected) 01/04/23 21:03 Influenza Type B (PCR) Not Detected (NotDetected) 01/04/23 21:03 M. pneumoniae (PCR) Not Detected (NotDetected) 01/04/23 21:03 Parainfluenza 1 (PCR) Not Detected (NotDetected) 01/04/23 21:03 Parainfluenza 2 (PCR) Not Detected (NotDetected) 01/04/23 21:03 Parainfluenza 3 (PCR) Not Detected (NotDetected) 01/04/23 21:03 Parainfluenza 4 (PCR) Not Detected (NotDetected) 01/04/23 21:03 RSV (PCR) Not Detected (NotDetected) 01/04/23 21:03 Entero/Rhino (PCR) Not Detected (NotDetected) 01/04/23 21:03 SARS-CoV-2, RNA, NAAT NEGATIVE (NEGATIVE) 01/04/23 20:18 Blood Type A Positive 01/05/23 01:01 Antibody Screen NEGATIVE 01/05/23 01:01 Impressions Abdomen/Pelvis CT 01/04/23 20:01 Exam(s): CT ABDOMEN + PELVIS With Contrast EXAM: CT Abdomen and Pelvis With Intravenous Contrast CLINICAL HISTORY: Reason for exam: abdominal pain; vomiting. TECHNIQUE: Axial computed tomography images of the abdomen and pelvis with intravenous contrast. CTDI is 31.5 mGy and DLP is 1670 mGy-cm. Automated exposure control was utilized for the study. A dose lowering technique was utilized adhering to the principles of ALARA. CONTRAST: Contrast must be dictated COMPARISON: Dated 04/05/22. FINDINGS: Lung bases: Unremarkable. No mass. No consolidation. ABDOMEN: Liver: There is moderate intra-and extra hepatic biliary ductal dilatation which appears progressed from the prior study. Gallbladder and bile ducts: The patient is status post cholecystectomy. Pancreas: There is fatty replacement of the pancreas. No ductal dilation. Spleen: Unremarkable. No splenomegaly. Adrenals: Unremarkable. No mass. Kidneys and ureters: Unremarkable. No solid mass. No hydronephrosis. Stomach and bowel: There is moderate colitis extending from the splenic flexure through the sigmoid with wall thickening and pericolonic stranding. No evidence for perforation. No obstruction. PELVIS: Appendix: The patient is status post appendectomy. Bladder: Unremarkable. No mass. Reproductive: Unremarkable as visualized. ABDOMEN and PELVIS: Intraperitoneal space: Unremarkable. No free air. No significant fluid collection. Bones/joints: There are degenerative changes of the thoracolumbar spine. No acute fracture. No dislocation. Soft tissues: There are bilateral breast implants with associated calcification. Vasculature: Unremarkable. No abdominal aortic aneurysm. Lymph nodes: Unremarkable. No enlarged lymph nodes. Other findings: There is a baclofen pump in place. IMPRESSION: 1. Moderate left-sided colitis. 2. Significantly increased biliary ductal dilatation from the comparison study. Please correlate with bilirubin levels and consider MRCP for further evaluation as warranted. Electronically signed by: Janak Crowell MD 01/04/23 23:31 PM Diagnostic Findings EKG as per my interpretation :Rate 70, NSR, normal axis, no ischemia, low voltage
[2023-01-05] MEDS ORDERED: ACETAMINOPHEN 325 MG TAB PO PRN (02:10)
[2023-01-05] MEDS ORDERED: LORazepam 0.5 MG TAB PO PRN (02:14)
[2023-01-05] MEDS ORDERED: MoRPHine SULFATE 4 MG/ML 1 ML CARP\\VIAL IV PRN ×2 (02:14→08:35)
[2023-01-05] MEDS ORDERED: traMADol HCL 50 MG TABLET PO PRN (02:14)
[2023-01-05 02:49] LABS: Bilirubin Direct 0.3 mg/dl (0-0.2)
[2023-01-05] MEDS: LEVOTHYROXINE SODIUM 25 MCG TABLET PO SCH (05:21)
[2023-01-05 06:28] LABS: Basophils # (auto) 0.03 K/uL (0-0.2); Basophils % (auto) 0.2 %; Eosinophils # (auto) 0.04 K/uL (0-0.50); Eosinophils % (auto) 0.3 %; Hematocrit (blood only) 35.4 % (37.0-47.0); Hemoglobin 11.1 g/dl (12.0-16.0); Immature Granulocytes # (auto) 0.05 K/uL (0.01-0.20); Immature Granulocytes % (auto) 0.3 %; Lymphocytes # (auto) 1.59 K/uL (1.2-3.4); Lymphocytes % (auto) 10.5 %; Mean Corpuscular Hemoglobin 24.7 pg (25.0-34.0); Mean Corpuscular Hgb Conc 31.4 g/dL (32.0-36.0); Mean Corpuscular Volume 78.8 fL (80.0-100.0); Mean Platelet Volume 9.2 fL (9.4-12.4); Monocytes # (auto) 0.81 K/uL (0.11-0.59); Monocytes % (auto) 5.4 %; Neutrophils # (auto) 12.61 K/uL (1.40-6.50); Neutrophils % (auto) 83.3 %; Platelet Count 370 K/uL (130-400); RDW Coefficient of Variation 15.5 % (11.5-14.5); Red Blood Count 4.49 M/uL (4.20-5.40); White Blood Count 15.13 K/ul (4.8-10.8)
[2023-01-05 06:35] LABS: Adenovirus F 40/41 PCR Not Detected (NotDetected); Astrovirus PCR Not Detected (NotDetected); Campylobacter PCR Not Detected (NotDetected); Cryptosporidium PCR Not Detected (NotDetected); Cyclospora cayetanensis PCR Not Detected (NotDetected); Entamoeba histolytica PCR Not Detected (NotDetected); Enteroaggregative E.coli(EAEC) Not Detected (NotDetected); Enteropathogenic E.coli (EPEC) Not Detected (NotDetected); Enterotoxigenic E.coli (ETEC) Not Detected (NotDetected); Giardia lamblia PCR Not Detected (NotDetected); Norovirus GI/GII PCR Not Detected (NotDetected); Plesiomonas shigelloides PCR Not Detected (NotDetected); Rotavirus A PCR Not Detected (NotDetected); Salmonella PCR Not Detected (NotDetected); Sapovirus PCR Not Detected (NotDetected); Shiga-like Toxin E.coli (STEC) Not Detected (NotDetected); Shigella/Enteroinvasive E.coli Not Detected (NotDetected); Vibrio cholerae PCR Not Detected (NotDetected); Vibrio species PCR Not Detected (NotDetected); Yersinia enterocolitica PCR Not Detected (NotDetected)
[2023-01-05] MEDS: PROMETHAZINE HCL 12.5 MG in SODIUM CHLORIDE 0.9% 50 ML IV PRN ×2 (06:44→20:54)
[2023-01-05 07:17] LABS: Albumin Level 3.3 gm/dl (3.4-5.0); Bilirubin,Total 0.4 mg/dl (0.2-1.0); Calcium 8.6 mg/dl (8.6-10.3); Potassium 4.3 mmol/L (3.5-5.1)
[2023-01-05 07:23] LABS: Albumin Globulin Ratio 1.3 (0.9-2); BUN Creatinine Ratio 26.5 (10-20); Creatinine Clr Calc Pharmacy 85.3 ml/min; Est GFR (African American) 70.7 ml/min; Globulin 2.5 gm/dl (2.5-4.0); Total Protein 5.8 gm/dl (6.0-8.3)
[2023-01-05] MEDS ORDERED: SODIUM CHLORIDE 0.9% 1000ML 1,000 ML IV ONE (07:42)
[2023-01-05] MEDS: metroNIDAZOLE 500 MG/100 ML BAG IV SCH ×3 (08:05→23:33)
[2023-01-05] MEDS: FAMOTIDINE 20 MG TAB PO SCH ×2 (08:07→20:55)
[2023-01-05] MEDS: lisinopril 10 MG TAB PO SCH (08:07)
[2023-01-05] MEDS: CETIRIZINE HCL 10 MG TABLET PO SCH (08:08)
[2023-01-05] MEDS: PANTOprazole 40 MG TAB PO SCH ×2 (08:08→20:56)
[2023-01-05 10:23] LABS: Estimated Average Glucose 123 mg/dl; Hemoglobin A1C 5.9 % (4.5-5.6)
[2023-01-05] MEDS: CEFEPIME 2,000 MG in SYRINGE 0 ML IV SCH ×2 (10:28→17:55)
[2023-01-05 12:42] LABS: Hematocrit (blood only) 39.3 % (37.0-47.0); Hemoglobin 12.2 g/dl (12.0-16.0)
--- NOTE | 2023-01-05 13:02 | Electrocardiogram Report ---
Test Reason : Blood Pressure : / mmHG Vent. Rate : 072 BPM Atrial Rate : 072 BPM P-R Int : 130 ms QRS Dur : 080 ms QT Int : 372 ms P-R-T Axes : 006 022 035 degrees QTc Int : 407 ms Normal sinus rhythm Low voltage QRS Poor R wave progression, consider anterior WI vs. lead placement vs. LVH Abnormal ECG When compared with ECG of 05-APR-2022 10:46, No significant change was found Confirmed by Mitch Lopez ([id number]) on 01/05/2023 1:01:47 PM Referred By: REFERRED SELF Confirmed By:Mitch Lopez
--- NOTE | 2023-01-05 15:13 | Gastrointestinal Consultation ---
Date of Consultation January 05, 2023 Assessment & Plan (1) Nausea, vomiting, and diarrhea: (2) Abdominal pain: (3) Transaminitis: MRCP is pending Discussed case with Dr. Chance who will review her imaging and make further recommendations regarding need for EUS/ERCP Continue current therapy and supportive care (4) Abnormal CT of the abdomen: Differential diagnosis is broad but includes: Viral gastroenteritis, Infectious colitis, Ischemic colitis, Ulcerative colitis Will need outpatient colonoscopy for further evaluation History of Present Illness Reason for Consultation: Abdominal pain Attending Physician: Nitesh Briones MD History of Present Illness Milagro Tamayo is a 57 yo CF who presented to the ER last night with complaints of abdominal pain, nausea, vomiting and diarrhea. She states that she did have some bright red blood per rectum yesterday as well. Upon arrival to the ER she was noted to have an elevated WBC count >20, a normal H/H, and slightly elevated liver panel. She subsequently underwent a CT abd/pelvis and was noted to have moderate left-sided colitis, and a "significantly increased biliary ductal dilation from the comparison study." She did have a prior cholecystectomy many years ago, and states that she has never undergone an EGD or colonoscopy in the past. She was given antibiotics in the ER, and was admitted. At the time I saw the patient, she continued to complain of generalized abdominal pain. She rated her pain as 3/10 in intensity, non-radiating. She denies any fevers, chills, nausea, vomiting, diarrhea, hematemesis, melena, or hematochezia. She denies any jaundice, acholic stools, dark urine or pruritus. She has no further com plaints. Allergies Allergy/AdvReac Type Severity Reaction Status Date / Time adhesive Allergy Intermediate ITCHY, Verified 01/04/23 21:42 BLISTERY-- SURGICAL TAPE azithromycin [From Zithromax] Allergy Intermediate Hives Verified 01/04/23 21:42 Sulfa (Sulfonamide Allergy Intermediate hives Verified 01/04/23 21:42 Antibiotics) sulfamethoxazole Allergy Intermediate Hives Verified 01/04/23 21:42 [From Bactrim] trimethoprim [From Bactrim] Allergy Intermediate Hives Verified 01/04/23 21:42 oxycodone AdvReac Intermediate itch all Verified 01/04/23 21:42 over from Percocet Home Medications Medication Instructions Recorded Confirmed Type hcddjgx-nydtmwllfahak-dycqsjqg 250 2 tab PO Q6H PRN Headache 11/02/18 01/04/23 History mg-250 mg-65 mg tablet (Excedrin Migraine) cetirizine 10 mg tablet 10 mg PO QAM 11/02/18 01/04/23 History clobetasol 0.05 % topical cream 1 applic topical BID PRN Skin 11/02/18 01/04/23 History Irritation levothyroxine 25 mcg tablet 25 mcg PO DAILY 11/02/18 01/04/23 History naproxen 500 mg tablet 500 mg PO BID 11/02/18 01/04/23 History omeprazole 20 mg tablet,delayed 20 mg PO BID 11/02/18 01/04/23 History release famotidine 20 mg tablet 20 mg PO BID 04/05/22 01/04/23 History lisinopril 10 mg tablet 10 mg PO DAILY 04/05/22 01/04/23 History ondansetron HCl 8 mg tablet 8 mg PO Q8H PRN NAUSEA/VOMITING 04/05/22 01/04/23 History rimegepant 75 mg disintegrating 75 mg PO Q OTHER DAY 04/05/22 01/04/23 History tablet (Nurtec ODT) cholecalciferol (vitamin D3) 25 25 mcg PO DAILY 01/04/23 01/04/23 History mcg (1,000 unit) capsule (Vitamin D3) naratriptan 1 mg tablet 1 mg PO DIRECTED PRN Migraine 01/04/23 01/04/23 History Headache Patient History Medical History (Updated 01/05/23 @ 15:22 by Wale Marks DO) Migraines Surgical History History of cholecystectomy Family History Other Diabetes Heart disease Hypertension Social History Smoking Status: Never smoker Hx Alcohol Use: No Hx Substance Use: No Preferred Language: Georgian Communication Ability: Effective Principal Cyber Engineer Required: No Beliefs That Will Affect Care: None Current Living Situation: Spouse Other Information That Helps Us Care for You: No Feels Safe at Home: Yes Safety Concerns: Feels Safe At This Time Assistive Devices: Walker Review of Systems Review of Systems: All systems reviewed & are unremarkable except as noted in HPI & below Physical Exam Constitutional: WD/WN, vitals as above no acute distress and not ill appearing Eyes: + anicteric sclerae Respiratory: normal respiratory effort, lungs clear to auscultation Cardiovascular: RRR, no murmur, no edema Gastrointestinal (Abdomen): normal bowel sounds, soft, nontender, no hepatosplenomegaly Skin: no rashes, warm and dry Psychiatric: A+Ox3, euthymic affect Results & Data Vital Signs (Past 12 Hours) Vital Signs Temp Pulse Pulse Pulse Resp BP BP 01/05/23 11:27 36.9 C 75 18 121/76 01/05/23 10:14 72 01/05/23 07:56 36.6 C 72 18 106/65 01/05/23 04:15 77 01/05/23 05:41 01/05/23 04:13 36.4 C L 76 18 129/71 01/05/23 04:13 01/05/23 04:23 36.4 C L 76 18 129/71 Pulse Ox Pulse Ox O2 Del Method O2 Del Method 01/05/23 11:27 98 Room Air 01/05/23 10:14 01/05/23 07:56 97 Room Air 01/05/23 04:15 01/05/23 05:41 Room Air 01/05/23 04:13 97 Room Air 01/05/23 04:13 97 Room Air 01/05/23 04:23 97 Room Air PG Care Time/CCT Total # of Minutes Spent Total Time Spent with Patient: Total time spent is greater than 50% in coordination of care (as documented) at patient's floor/unit and/or counseling patient: Coding Level of Care Code 68235 IN/OBS CONSULT LVL 4,60M Diagnoses Nausea, vomiting, and diarrhea R11.2; R19.7 Abdominal pain R10.[address] of the abdomen R93.5
--- NOTE | 2023-01-05 15:56 | Magnetic Resonance Report ---
MR MRCP HISTORY: 57 years-old Female abd pain acute abdominal pain with nausea, vomiting and diarrhea COMPARISON: CT abdomen and pelvis 01/04/2023 TECHNIQUE: MRCP was obtained without the use of IV contrast. FINDINGS: Motion degraded exam. Bilateral breast implants. Persistent wall thickening with adjacent inflammator y stranding is noted involving the colon, most pronounced within the descending segment. No bowel obs truction. Mildly atrophic pancreas. Unremarkable adrenal glands and kidneys. The liver is within norm al limits. Cholecystectomy with intrahepatic and extrahepatic biliary ductal dilation redemonstrated. The common bile duct measures up to 1.7 cm transversely. No obstructing biliary lesion, or choledoch olithiasis. Questioned mild irregularity of the intrahepatic biliary tree. No pancreatic ductal dilat ion. IMPRESSION: 1. Status post cholecystectomy. 2. Intrahepatic and extrahepatic biliary ductal dilation is again noted without obstructing biliary l esion, or choledocholithiasis. 3. Wall thickening of the colon redemonstrated compatible with a nonspecific colitis. ACT 112: Negative or not required by law. The above report was generated using voice recognition software. It may contain grammatical, syntax o r spelling errors. Electronically signed by: Jose Kumar M.D. 01/05/2023 3:54 PM
--- NOTE | 2023-01-05 16:42 | Hospitalist Progress Note ---
Date of Service January 05, 2023 Assessment & Plan (1) Abdominal pain: Plan: Left-sided colitis DD: Viral gastroenteritis, inflammatory bowel disease, ischemic colitis H/O Aspirin use for DVT prophylaxis for recent left ankle surgery contributory --CT ABD:Moderate left-sided colitis. Significantly increased biliary ductal dilatation from the comparison study. Please correlate with bilirubin levels and consider MRCP for further evaluation as warranted. --MRCP:Status post cholecystectomy. Intrahepatic and extrahepatic biliary ductal dilation is again noted without obstructing biliary lesion, or choledocholithiasis. Wall thickening of the colon redemonstrated compatible with a nonspecific colitis. --Stool PCR: Negative; negative C. difficile -- Clear liquid diet today Empirically on cefepime, Flagyl Appreciate GI input May need colonoscopy eventually Continuing gentle IV fluids Biliary ductal dilatation Mild transaminitis Likely secondary to cholecystectomy May need ERCP/EUS for further evaluation GI on board Monitor LFTs Urinary tract infection Blood culture, urine culture pending Continue empiric cefepime Prediabetes HbA1c 5.9 Hypothyroidism Continue levothyroxine Hypertension GERD Migraine Continue home medications DVT Px: SCDs for now Code Status Full code Admission and Anticipated Discharge Date Admission Date: January 05, 2023 Subjective Changes seen and examined at bedside Patient abdominal pain improved Had 1 loose bowel movement today with minimal blood Denies any nausea vomiting Reports headache Denies any chest pain, dyspnea No other complaints Review of Systems Review of Systems: All systems reviewed & are unremarkable except as noted in Subjective Physical Exam Physical Exam: Physical Exam: Vitals signs as noted above General Appearance:Obese, no apparent distress Head: normocephalic, Atraumatic Eyes: normal inspection, EOMI Neck: supple, Trachea midline Respiratory/Chest: Normal breath sounds, CTA, No accessory muscle use Cardiovascular: S1, S2, No murmur Abdomen/GI:Soft, Non tender, Bowel sounds present Extremities/Musculoskeletal:normal inspection, chronic RLE edema, Trace LLE edema Neurologic/Psych:AAOX3, grossly no focal neurological deficits Skin: normal color, warm Results & Data Results & Data Vital Signs (Past 12 Hours) Vital Signs Temp Pulse Pulse Pulse Resp BP BP 01/05/23 16:00 36.9 C 68 18 118/73 01/05/23 11:27 36.9 C 75 18 121/76 01/05/23 10:14 72 01/05/23 07:56 36.6 C 72 18 106/65 01/05/23 05:41 Pulse Ox O2 Del Method 01/05/23 16:00 98 Room Air 01/05/23 11:27 98 Room Air 01/05/23 10:14 01/05/23 07:56 97 Room Air 01/05/23 05:41 Room Air Laboratory Results Short CBC 01/04/23 01/05/23 01/05/23 Range/Units 19:40 01:01 06:02 WBC 24.08 H 15.13 H (4.8-10.8) K/ul Hgb 13.0 11.4 L 11.1 L (12.0-16.0) g/dl Hct 41.7 36.1 L 35.4 L (37.0-47.0) % Plt Count 416 H 370 (130-400) K/uL 01/05/23 Range/Units 11:57 WBC (4.8-10.8) K/ul Hgb 12.2 (12.0-16.0) g/dl Hct 39.3 (37.0-47.0) % Plt Count (130-400) K/uL BMP 01/04/23 01/05/23 19:40 06:02 Sodium 137 137 Potassium 4.3 4.3 Chloride 106 108 H Carbon Dioxide 22 23 BUN 30 H 27 H Creatinine 0.99 1.02 Glucose 131 H 98 Calcium 9.5 8.6 Liver Function 01/04/23 01/05/23 Range/Units 19:40 06:02 Total Bilirubin 0.9 0.4 D (0.2-1.0) mg/dl Direct Bilirubin 0.3 H (0-0.2) mg/dl AST 125 H 47 H (13-39) U/L ALT 58 H 40 (7-52) U/L Alkaline Phosphatase 207 H 135 H (34-104) U/L Albumin 3.8 3.3 L (3.4-5.0) gm/dl Urine 01/04/23 Range/Units 21:03 Urine Color [place] Urine Appearance Cloudy A (Clear) Urine pH 5.0 (4.5-7.5) Ur Specific [place] 1.030 (1.000-1.030) Urine Protein 1+ H (Negative) Urine Glucose (UA) Negative (Negative)
[2023-01-05] MEDS: SODIUM CHLORIDE 0.9% 1000ML 1,000 ML IV SCH (17:55)
[2023-01-06] MEDS: CEFEPIME 2,000 MG in SYRINGE 0 ML IV SCH ×2 (03:05→10:27)
[2023-01-06] MEDS: LEVOTHYROXINE SODIUM 25 MCG TABLET PO SCH (05:40)
[2023-01-06] MEDS: SODIUM CHLORIDE 0.9% 1000ML 1,000 ML IV SCH (05:41)
[2023-01-06 07:45] LABS: Hematocrit (blood only) 37.2 % (37.0-47.0); Hemoglobin 11.2 g/dl (12.0-16.0); Mean Corpuscular Hemoglobin 24.5 pg (25.0-34.0); Mean Corpuscular Hgb Conc 30.1 g/dL (32.0-36.0); Mean Corpuscular Volume 81.4 fL (80.0-100.0); Mean Platelet Volume 8.9 fL (9.4-12.4); Platelet Count 353 K/uL (130-400); RDW Coefficient of Variation 15.6 % (11.5-14.5); RDW Standard Deviation 45.6 fL (36.4-46.3); Red Blood Count 4.57 M/uL (4.20-5.40); White Blood Count 7.01 K/ul (4.8-10.8)
[2023-01-06 08:06] LABS: Albumin Globulin Ratio 1.3 (0.9-2); Albumin Level 3.5 gm/dl (3.4-5.0); BUN Creatinine Ratio 19.2 (10-20); Bilirubin,Total 0.4 mg/dl (0.2-1.0); Calcium 8.9 mg/dl (8.6-10.3); Creatinine Clr Calc Pharmacy 102.9 ml/min; Est GFR (African American) 97.8 ml/min; Est GFR (Non-African American) 84.4 ml/min; Globulin 2.8 gm/dl (2.5-4.0); Total Protein 6.3 gm/dl (6.0-8.3)
[2023-01-06] MEDS: lisinopril 10 MG TAB PO SCH (08:46)
[2023-01-06] MEDS: metroNIDAZOLE 500 MG/100 ML BAG IV SCH (08:46)
[2023-01-06] MEDS: PANTOprazole 40 MG TAB PO SCH (08:46)
[2023-01-06] MEDS: FAMOTIDINE 20 MG TAB PO SCH (08:46)
[2023-01-06] MEDS: CETIRIZINE HCL 10 MG TABLET PO SCH (08:46)
--- NOTE | 2023-01-06 12:55 | Gastroenterology Progress Note ---
Date of Service January 06, 2023 Assessment & Plan (1) Abdominal pain: (2) Nausea, vomiting, and diarrhea: (3) Transaminitis: Plan: EUS as outpatient to be arranged by Dr. Chance's office. (4) Abnormal CT of the abdomen: Plan: Colonoscopy as outpatient to be arranged by Dr. Chance's office. Admission and Anticipated Discharge Date Admission Date: January 05, 2023 Subjective Feeling much better today. Reviewed MRCP findings with her. She tolerated PO intake, and has no complaints of fevers, chills, nausea, vomiting, abdominal pain or diarrhea. Review of Systems Review of Systems: All systems reviewed & are unremarkable except as noted in HPI & below Physical Exam Constitutional: WD/WN, vitals as above Respiratory: normal respiratory effort, lungs clear to auscultation Cardiovascular: RRR, no murmur, no edema Gastrointestinal (Abdomen): normal bowel sounds, soft, nontender, no hepatosplenomegaly Results & Data Results & Data Vital Signs (Past 12 Hours) Vital Signs Temp Pulse Pulse Pulse Resp BP Pulse Ox 01/06/23 11:58 36.6 C 70 18 109/73 97 01/06/23 07:40 66 01/06/23 07:33 36.6 C 67 18 138/75 100 01/06/23 02:39 36.5 C 62 18 99/63 L 100 O2 Del Method 01/06/23 11:58 Room Air 01/06/23 07:40 01/06/23 07:33 Room Air 01/06/23 02:39 Room Air PG Care Time/CCT Total # of Minutes Spent Total Time Spent with Patient: Total time spent is greater than 50% in coordination of care (as documented) at patient's floor/unit and/or counseling patient: Coding Level of Care Code 86549 SUB INP/OBS CARE 2/35MIN Diagnoses Abdominal pain R10.9 Nausea, vomiting, and diarrhea R11.2; R19.[address] of the abdomen R93.5
--- NOTE | 2023-01-06 13:17 | Hospitalist Progress Note ---
Date of Service January 06, 2023 Assessment & Plan (1) Abdominal pain: Plan: Left-sided colitis DD: Viral gastroenteritis, inflammatory bowel disease, ischemic colitis H/O Aspirin use for DVT prophylaxis for recent left ankle surgery contributory --CT ABD:Moderate left-sided colitis. Significantly increased biliary ductal dilatation from the comparison study. Please correlate with bilirubin levels and consider MRCP for further evaluation as warranted. --MRCP:Status post cholecystectomy. Intrahepatic and extrahepatic biliary ductal dilation is again noted without obstructing biliary lesion, or choledocholithiasis. Wall thickening of the colon redemonstrated compatible with a nonspecific colitis. --Stool PCR: Negative; negative C. difficile -- Clear liquid diet today Empirically on cefepime, Flagyl Appreciate GI input May need colonoscopy eventually Continuing gentle IV fluids Biliary ductal dilatation Mild transaminitis Likely secondary to cholecystectomy May need ERCP/EUS for further evaluation GI on board Monitor LFTs Urinary tract infection Blood culture, urine culture pending Continue empiric cefepime Prediabetes HbA1c 5.9 Hypothyroidism Continue levothyroxine Hypertension GERD Migraine Continue home medications DVT Px: SCDs for now Code Status Full code Admission and Anticipated Discharge Date Admission Date: January 05, 2023 Physical Exam Physical Exam: Physical Exam: Vitals signs as noted above General Appearance:Obese, no apparent distress Head: normocephalic, Atraumatic Eyes: normal inspection, EOMI Neck: supple, Trachea midline Respiratory/Chest: Normal breath sounds, CTA, No accessory muscle use Cardiovascular: S1, S2, No murmur Abdomen/GI:Soft, Non tender, Bowel sounds present Extremities/Musculoskeletal:normal inspection, chronic RLE edema, Trace LLE edema Neurologic/Psych:AAOX3, grossly no focal neurological deficits Skin: normal color, warm Results & Data Results & Data Vital Signs (Past 12 Hours) Vital Signs Temp Pulse Pulse Pulse Resp BP Pulse Ox 01/06/23 11:58 36.6 C 70 18 109/73 97 01/06/23 07:40 66 01/06/23 07:33 36.6 C 67 18 138/75 100 01/06/23 02:39 36.5 C 62 18 99/63 L 100 O2 Del Method 01/06/23 11:58 Room Air 01/06/23 07:40 01/06/23 07:33 Room Air 01/06/23 02:39 Room Air
[2023-01-06] MEDS ORDERED: DICYCLOMINE HCL 10 MG CAP PO PRN (13:25)
[2023-01-06] MEDS ORDERED: LOPERAMIDE HCL 2 MG CAP PO PRN (13:25)
--- NOTE | 2023-01-06 13:38 | Hospitalist Progress Note ---
Date of Service January 06, 2023 Assessment & Plan (1) Abdominal pain: Plan: Left-sided colitis Hemorrhagic colitis DD: Viral gastroenteritis, inflammatory bowel disease, ischemic colitis H/O Aspirin use for DVT prophylaxis for recent left ankle surgery contributory --CT ABD:Moderate left-sided colitis. Significantly increased biliary ductal dilatation from the comparison study. Please correlate with bilirubin levels and consider MRCP for further evaluation as warranted. --MRCP:Status post cholecystectomy. Intrahepatic and extrahepatic biliary ductal dilation is again noted without obstructing biliary lesion, or choledochol ithiasis. Wall thickening of the colon redemonstrated compatible with a nonspecific colitis. --Stool PCR: Negative; negative C. difficile -Empirically on cefepime, Flagyl Appreciate GI input May need colonoscopy eventually DC IV fluids Tolerated regular diet Discussed with gastroenterology today--recommends outpatient endoscopic ultrasound, colonoscopy Biliary ductal dilatation Mild transaminitis Likely secondary to cholecystectomy May need ERCP/EUS for further evaluation GI on board Monitor LFTs LFTs improved Urinary tract infection--Ruled out Blood culture negative to date urine culture negative Empirically received cefepime Prediabetes HbA1c 5.9 Hypothyroidism Continue levothyroxine Hypertension GERD Migraine Continue home medications DVT Px: SCDs for now Code Status Full code Admission and Anticipated Discharge Date Admission Date: January 05, 2023 Subjective Patient is seen and examined at bedside States having minimal abdominal cramps this morning but later tolerated regular diet and had no issues Diarrhea much improved Discussed with GI today No new complaints No bleeding issues Also denies any chest pain, dyspnea, nausea, vomiting Prefers to be discharged home today Review of Systems Review of Systems: All systems reviewed & are unremarkable except as noted in Subjective Physical Exam Physical Exam: Physical Exam: Vitals signs as noted above General Appearance:Obese, no apparent distress Head: normocephalic, Atraumatic Eyes: normal inspection, EOMI Neck: supple, Trachea midline Respiratory/Chest: Normal breath sounds, CTA, No accessory muscle use Cardiovascular: S1, S2, No murmur Abdomen/GI:Soft, Non tender, Bowel sounds present Extremities/Musculoskeletal:normal inspection, chronic RLE edema, Trace LLE edema Neurologic/Psych:AAOX3, grossly no focal neurological deficits Skin: normal color, warm Results & Data Results & Data Vital Signs (Past 12 Hours) Vital Signs Temp Pulse Pulse Pulse Resp BP Pulse Ox 01/06/23 11:58 36.6 C 70 18 109/73 97 01/06/23 07:40 66 01/06/23 07:33 36.6 C 67 18 138/75 100 01/06/23 02:39 36.5 C 62 18 99/63 L 100 O2 Del Method 01/06/23 11:58 Room Air 01/06/23 07:40 01/06/23 07:33 Room Air 01/06/23 02:39 Room Air Laboratory Results Short CBC 01/06/23 Range/Units 07:25 WBC 7.01 (4.8-10.8) K/ul Hgb 11.2 L (12.0-16.0) g/dl Hct 37.2 (37.0-47.0) % Plt Count 353 (130-400) K/uL BMP 01/06/23 07:25 Sodium 140 Potassium 4.0 Chloride 109 H Carbon Dioxide 26 BUN 15 Creatinine 0.78 Glucose 77 Calcium 8.9 Liver Function 01/06/23 Range/Units 07:25 Total Bilirubin 0.4 (0.2-1.0) mg/dl AST 38 (13-39) U/L ALT 39 (7-52) U/L Alkaline Phosphatase 114 H (34-104) U/L Albumin 3.5 (3.4-5.0) gm/dl
--- NOTE | 2023-01-06 13:40 | Discharge Summary ---
Date of Service January 06, 2023 Admission HPI Per Admitting Provider History obtained from patient and records. Medical history significant for hypertension, GERD, migraine, hypothyroidism. Last [facility] confinement 2017 under General Surgery service for acute appendicitis status post surgery. Patient underwent right ankle fracture surgery at [facility] last September 2022. Instructed to take aspirin daily for postop DVT prophylaxis. Patient set to return to work next month. Yesterday, patient noted achy abdominal pain followed by bilious emesis and watery diarrhea later noted to be bloody. No chest pain, no SOB. Usual migraine headache symptoms. Unrecalled antibiotic few weeks ago for possible UTI. Denies inordinate intake of Tylenol. Denies recent EtOH intake. At the ER, ceftriaxone administered at the ER for sepsis. Medical History as above No prior endoscopies. Surgical History : Right ankle surgery Family History : Laparoscopic cholecystectomy, dental surgery, breast surgery, left foot surgery, spinal cord stimulator placement Personal/Social history : Non-smoker, no EtOH intake, [facility] scheduling appointment Admission Exam Per Admitting Provider N GENERAL: Comfortable, pleasant, obese, no respiratory distress SKIN: Normal color, warm HEENT: [place] palpebral conjunctivae, no ptosis, dry buccal mucosa NECK : Supple, short neck, no tenderness CHEST : CTA, no tenderness HEART : RRR, no obvious murmurs ABDOMEN: Some distention, hypogastric tenderness EXTREMITIES : Minimal LE swelling, no LE tenderness, no other conspicuous def ormities noted NEUROLOGIC : Coherent, no facial asymmetry, no other gross focality Principal Diagnosis Colitis Biliary ductal dilatation Discharge Data Allergies Allergy/AdvReac Type Severity Reaction Status Date / Time adhesive Allergy Intermediate ITCHY, Verified 01/04/23 21:42 BLISTERY-- SURGICAL TAPE azithromycin [From Zithromax] Allergy Intermediate Hives Verified 01/04/23 21:42 Sulfa (Sulfonamide Allergy Intermediate hives Verified 01/04/23 21:42 Antibiotics) sulfamethoxazole Allergy Intermediate Hives Verified 01/04/23 21:42 [From Bactrim] trimethoprim [From Bactrim] Allergy Intermediate Hives Verified 01/04/23 21:42 oxycodone AdvReac Intermediate itch all Verified 01/04/23 21:42 over from Percocet Consultations 01/04/23 23:03 ED Decision to Admit Stat 01/05/23 05:04 Consult Gastroenterology Routine Procedures Performed Laboratory Results WBC 7.01 K/ul (4.8-10.8) 01/06/23 07:25 RBC 4.57 M/uL (4.20-5.40) 01/06/23 07:25 Hgb 11.2 g/dl (12.0-16.0) L 01/06/23 07:25 Hct 37.2 % (37.0-47.0) 01/06/23 07:25 MCV 81.4 fL (80.0-100.0) 01/06/23 07:25 MCH 24.5 pg (25.0-34.0) L 01/06/23 07:25 MCHC 30.1 g/dL (32.0-36.0) L 01/06/23 07:25 RDW Std Deviation 45.6 fL (36.4-46.3) 01/06/23 07:25 RDW Coeff of Radha 15.6 % (11.5-14.5) H 01/06/23 07:25 Plt Count 353 K/uL (130-400) 01/06/23 07:25 MPV 8.9 fL (9.4-12.4) L 01/06/23 07:25 Immature Gran % (Auto) 0.3 % 01/05/23 06:02 Neut % (Auto) 83.3 % 01/05/23 06:02 Lymph % (Auto) 10.5 % 01/05/23 06:02 Dewitt % (Auto) 5.4 % 01/05/23 06:02 Eos % (Auto) 0.3 % 01/05/23 06:02 Baso % (Auto) 0.2 % 01/05/23 06:02 Neut # (Auto) 12.61 K/uL (1.40-6.50) H 01/05/23 06:02 Lymph # (Auto) 1.59 K/uL (1.2-3.4) 01/05/23 06:02 Dewitt # (Auto) 0.81 K/uL (0.11-0.59) H 01/05/23 06:02 Eos # (Auto) 0.04 K/uL (0-0.50) 01/05/23 06:02 Baso # (Auto) 0.03 K/uL (0-0.2) 01/05/23 06:02 Immature Gran # (Auto) 0.05 K/uL (0.01-0.20) 01/05/23 06:02 Sodium 140 mmol/L (136-145) 01/06/23 07:25 Potassium 4.0 mmol/L (3.5-5.1) 01/06/23 07:25 Chloride 109 mmol/L (98-107) H 01/06/23 07:25 Carbon Dioxide 26 mmol/L (21-32) 01/06/23 07:25 Anion Gap 5 (3-11) 01/06/23 07:25 BUN 15 mg/dl (6-23) 01/06/23 07:25 Creatinine 0.78 mg/dl (0.6-1.2) 01/06/23 07:25 Est Cr Clr Drug Dosing 102.9 ml/min 01/06/23 07:25 Est GFR ( Amer) 97.8 ml/min 01/06/23 07:25 Est GFR (Non-Af Amer) 84.4 ml/min 01/06/23 07:25 BUN/Creatinine Ratio 19.2 (10-20) 01/06/23 07:25 Glucose 77 mg/dl (70-99(Fasting)) 01/06/23 07:25 Estimat Average Glucose 123 mg/dl 01/05/23 06:02 Hemoglobin A1c 5.9 % (4.5-5.6) H 01/05/23 06:02 Lactate 1.1 mmol/L (0.4-2.0) 01/05/23 01:01 Calcium 8.9 mg/dl (8.6-10.3) 01/06/23 07:25 Magnesium 2.0 mg/dl (1.7-2.4) 01/06/23 07:25 Total Bilirubin 0.4 mg/dl (0.2-1.0) 01/06/23 07:25 Direct Bilirubin 0.3 mg/dl (0-0.2) H 01/04/23 19:40 AST 38 U/L (13-39) 01/06/23 07:25 ALT 39 U/L (7-52) 01/06/23 07:25 Alkaline Phosphatase 114 U/L (34-104) H 01/06/23 07:25 Troponin I High Sens 7.9 pg/ml (0-14) 01/04/23 19:40 Total Protein 6.3 gm/dl (6.0-8.3) 01/06/23 07:25 Albumin 3.5 gm/dl (3.4-5.0) 01/06/23 07:25 Globulin 2.8 gm/dl (2.5-4.0) 01/06/23 07:25 Albumin/Globulin Ratio 1.3 (0.9-2) 01/06/23 07:25 Lipase 21 U/L (11-82) 01/04/23 19:40 Procalcitonin 4.74 ng/ml (0-0.5) H 01/04/23 22:52 Urine Color Lucas 01/04/23 21: Urine Appearance Cloudy (Clear) A 01/04/23 21:03 Urine pH 5.0 (4.5-7.5) 01/04/23 21:03 Ur Specific [place] 1.030 (1.000-1.030) 01/04/23 21:03 Urine Protein 1+ (Negative) H 01/04/23 21:03 Urine Glucose (UA) Negative (Negative) 01/04/23 21:03 Urine Ketones Trace (Negative) H 01/04/23 21:03 Urine Blood Negative (Negative) 01/04/23 21: Urine Nitrite Positive (Negative) A 01/04/23 21:03 Urine Bilirubin 3+ (Negative) H 01/04/23 21:03 Urine Urobilinogen Negative (Negative) 01/04/23 21:03 Ur Leukocyte Esterase 2+ (Negative) H 01/04/23 21:03 Urine WBC (Auto) 5-10 /hpf (0-5) H 01/04/23 21:03 Urine RBC (Auto) 5-10 /hpf (0-4) H 01/04/23 21:03 U Hyaline Cast (Auto) 0 /lpf (0-5) 01/04/23 21:03 U Epithel Cells (Auto) >30 /lpf (0-5) H 01/04/23 21:03 Urine Bacteria (Auto) Negative (Negative) 01/04/23 21:03 Urine Mucus Present (None Prsent) A 01/04/23 21:03 POC Ur Test NEG (NEG) 01/04/23 21:06 Stl C. cayetanensis PCR Not Detected (NotDetected) 01/05/23 Unknown Stool Rotavirus A PCR Not Detected (NotDetected) 01/05/23 Unknown Stl Adenov F 40/41 PCR Not Detected (NotDetected) 01/05/23 Unknown Stool Astrovirus (PCR) Not Detected (NotDetected) 01/05/23 Unknown Stool Campylobacter PCR Not Detected (NotDetected) 01/05/23 Unknown Stl C. diff Tox B Gene Negative Cdiff Gene (Neg) 01/05/23 Unknown Stool Cryptosporidium PCR Not Detected (NotDetected) 01/05/23 Unknown Stl E.coli Shiga Tox PCR Not Detected (NotDetected) 01/05/23 Unknown Stl Enterotoxigenic E PCR Not Detected (NotDetected) 01/05/23 Unknown Stool EPEC (PCR) Not Detected (NotDetected) 01/05/23 Unknown Stool EAEC (PCR) Not Detected (NotDetected) 01/05/23 Unknown Stl E. histolytica PCR Not Detected (NotDetected) 01/05/23 Unknown Stool Giardia Lamblia PCR Not Detected (NotDetected) 01/05/23 Unknown Stool Salmonella PCR Not Detected (NotDetected) 01/05/23 Unknown Stool Sapovirus (PCR) Not Detected (NotDetected) 01/05/23 Unknown Stl P. shigelloides PCR Not Detected (NotDetected) 01/05/23 Unknown Stl Shigella/EIEC PCR Not Detected (NotDetected) 01/05/[address].enterocolitica PCR Not Detected (NotDetected) 01/05/23 Unknown Stool Vibrio (PCR) Not Detected (NotDetected) 01/05/23 Unknown Stl Vibrio cholerae PCR Not Detected (NotDetected) 01/05/23 Unknown Stl Norovirus GI/GII PCR Not Detected (NotDetected) 01/05/23 Unknown Adenovirus (PCR) Not Detected (NotDetected) 01/04/23 21:03 B. pertussis DNA (PCR) Not Detected (NotDetected) 01/04/23 21:03 B.parapertussis DNA PCR Not Detected (NotDetected) 01/04/23 21:03 C. pneumoniae DNA (PCR) Not Detected (NotDetected) 01/04/23 21:03 Coronavirus OC43 (PCR) Not Detected (NotDetected) 01/04/23 21:03 Coronavirus HKU1 (PCR) Not Detected (NotDetected) 01/04/23 21:03 Coronavirus 229E (PCR) Not Detected (NotDetected) 01/04/23 21:03 SARS-CoV-2 (PCR) Not Detected (NotDetected) 01/04/23 21:03 Coronavirus NL63 (PCR) Not Detected (NotDetected) 01/04/23 21:03 Human Metapneumovir PCR Not Detected (NotDetected) 01/04/23 21:03 Influenza Type A (PCR) Not Detected (NotDetected) 01/04/23 21:03 Influenza Type B (PCR) Not Detected (NotDetected) 01/04/23 21:03 M. pneumoniae (PCR) Not Detected (NotDetected) 01/04/23 21:03 Parainfluenza 1 (PCR) Not Detected (NotDetected) 01/04/23 21:03 Parainfluenza 2 (PCR) Not Detected (NotDetected) 01/04/23 21:03 Parainfluenza 3 (PCR) Not Detected (NotDetected) 01/04/23 21:03 Parainfluenza 4 (PCR) Not Detected (NotDetected) 01/04/23 21:03 RSV (PCR) Not Detected (NotDetected) 01/04/23 21:03 Entero/Rhino (PCR) Not Detected (NotDetected) 01/04/23 21:03 SARS-CoV-2, RNA, NAAT NEGATIVE (NEGATIVE) 01/04/23 20:18 Blood Type A Positive 01/05/23 01:01 Antibody Screen NEGATIVE 01/05/23 01:01 Impressions Abdomen/Pelvis CT 01/04/23 20:01 Exam(s): CT ABDOMEN + PELVIS With Contrast EXAM: CT Abdomen and Pelvis With Intravenous Contrast CLINICAL HISTORY: Reason for exam: abdominal pain; vomiting. TECHNIQUE: Axial computed tomography images of the abdomen and pelvis with intravenous contrast. CTDI is 31.5 mGy and DLP is 1670 mGy-cm. Automated exposure control was utilized for the study. A dose lowering technique was utilized adhering to the principles of ALARA. CONTRAST: Contrast must be dictated COMPARISON: Dated 04/05/22. FINDINGS: Lung bases: Unremarkable. No mass. No consolidation. ABDOMEN: Liver: There is moderate intra-and extra hepatic biliary ductal dilatation which appears progressed from the prior study. Gallbladder and bile ducts: The patient is status post cholecystectomy. Pancreas: There is fatty replacement of the pancreas. No ductal dilation. Spleen: Unremarkable. No splenomegaly. Adrenals: Unremarkable. No mass. Kidneys and ureters: Unremarkable. No solid mass. No hydronephrosis. Stomach and bowel: There is moderate colitis extending from the splenic flexure through the sigmoid with wall thickening and pericolonic stranding. No evidence for perforation. No obstruction. PELVIS: Appendix: The patient is status post appendectomy. Bladder: Unremarkable. No mass. Reproductive: Unremarkable as visualized. ABDOMEN and PELVIS: Intraperitoneal space: Unremarkable. No free air. No significant fluid collection. Bones/joints: There are degenerative changes of the thoracolumbar spine. No acute fracture. No dislocation. Soft tissues: There are bilateral breast implants with associated calcification. Vasculature: Unremarkable. No abdominal aortic aneurysm. Lymph nodes: Unremarkable. No enlarged lymph nodes. Other findings: There is a baclofen pump in place. IMPRESSION: 1. Moderate left-sided colitis. 2. Significantly increased biliary ductal dilatation from the comparison study. Please correlate with bilirubin levels and consider MRCP for further evaluation as warranted. Electronically signed by: Janak Crowell MD 01/04/23 23:31 PM Cholangiopancreatography MRI 01/05/23 05:04 MR MRCP HISTORY: 57 years-old Female abd pain acute abdominal pain with nausea, vomiting and diarrhea COMPARISON: CT abdomen and pelvis 01/04/2023 TECHNIQUE: MRCP was obtained without the use of IV contrast. FINDINGS: Motion degraded exam. Bilateral breast implants. Persistent wall thickening with adjacent inflammatory stranding is noted involving the colon, most pronounced within the descending segment. No bowel obstruction. Mildly atrophic pancreas. Unremarkable adrenal glands and kidneys. The liver is within normal limits. Cholecystectomy with intrahepatic and extrahepatic biliary ductal dilation redemonstrated. The common bile duct measures up to 1.7 cm transversely. No obstructing biliary lesion, or choledocholithiasis. Questioned mild irregularity of the intrahepatic biliary tree. No pancreatic ductal dilation. IMPRESSION: 1. Status post cholecystectomy. 2. Intrahepatic and extrahepatic biliary ductal dilation is again noted without obstructing biliary lesion, or choledocholithiasis. 3. Wall thickening of the colon redemonstrated compatible with a nonspecific colitis. ACT 112: Negative or not required by law. The above report was generated using voice recognition software. It may contain grammatical, syntax or spelling errors. Electronically signed by: Jose Kumar M.D. 01/05/2023 3:54 PM Ordered Studies 01/04/23 20:01 CT abd pelvis IV con only Stat 01/05/23 05:04 MR MRCP Urgent Hospital Course (1) Abdominal pain: Left-sided colitis Hemorrhagic colitis DD: Viral gastroenteritis, inflammatory bowel disease, ischemic colitis H/O Aspirin use for DVT prophylaxis for recent left ankle surgery contributory --CT ABD:Moderate left-sided colitis. Significantly increased biliary ductal dilatation from the comparison study. Please correlate with bilirubin levels and consider MRCP for further evaluation as warranted. --MRCP:Status post cholecystectomy. Intrahepatic and extrahepatic biliary ductal dilation is again noted without obstructing biliary lesion, or choledocholithiasis. Wall thickening of the colon redemonstrated compatible with a nonspecific colitis. --Stool PCR: Negative; negative C. difficile -Empirically on cefepime, Flagyl Appreciate GI input May need colonoscopy eventually DC IV fluids Tolerated regular diet Discussed with gastroenterology today--recommends outpatient endoscopic ultrasound, colonoscopy Biliary ductal dilatation Mild transaminitis Likely secondary to cholecystectomy May need ERCP/EUS for further evaluation GI on board Monitor LFTs LFTs improved Urinary tract infection--Ruled out Blood culture negative to date urine culture negative Empirically received cefepime Prediabetes HbA1c 5.9 Hypothyroidism Continue levothyroxine Hypertension GERD Migraine Continue home medications DVT Px: SCDs for now Code Status Full code Total Time Total Time Spent Total Time Spent (In Minutes): 54 minutes Discharge Plan Discharge Items Patient Disposition: Home - Self-Care Reason For Visit: SEPSIS, LGIB Discharge Diagnosis: Colitis Biliary ductal dilatation Activity: Per Instructions section Exercise/Sports: Gradually increase as tolerated Non-emergency contact: Primary Care Provider and Heart Surgeon Call non-emergency contact if: you have any medication questions, your symptoms worsen, your pain is concerning for you and you have a fever Follow-up/Referrals: Mitali Gutierrez DO [Primary Care Provider] - Diet: Heart Healthy Addtl Attending Provider Instructions: Follow-up with your primary care physician Dr. Gutierrez in 1 week. Please call for appointment Follow-up with your basketball scout Dr. Chance for outpatient endoscopic ultrasound, colonoscopy --- Complete the antibiotic course (cefdinir, Flagyl) for 2 more days as prescribed. -- Your final blood culture results are pending at the time of discharge. Follow-up with your physician for results. Seek immediate medical attention if your symptoms reoccur or worsen Please take all medications as instructed on discharge list below. Please call if you have any questions or problems. You can reach a [facility] hospitalist on duty at [facility] 24 hours a day by calling [phone] Pending Studies at Discharge: Yes Studies:: Blood cultures Stand-Alone Forms: [facility], Smoking Cessation Medications and DC Order Prescriptions: New loperamide 2 mg Capsule 2 mg PO Q8H PRN (Reason: loose stool) Qty: 15 0RF dicyclomine 10 mg Capsule 10 mg PO BID PRN (Reason: abdominal pain) Qty: 10 0RF cefdinir 300 mg capsule 300 mg PO BID Qty: 5 0RF metronidazole 250 mg tablet 250 mg PO Q8H Qty: 7 0RF Continued cetirizine 10 mg Tablet 10 mg PO QAM clobetasol 0.05 % Cream 1 applic TOPICAL BID PRN (Reason: Skin Irritation) levothyroxine 25 mcg Tablet 25 mcg PO DAILY Excedrin Migraine 250-250-65 mg Tablet 2 tab PO Q6H PRN (Reason: Headache) naproxen 500 mg Tablet 500 mg PO BID omeprazole 20 mg Tablet,Delayed Release (Dr/Ec) 20 mg PO BID naratriptan [Amerge] 1 mg Tablet 1 mg PO DIRECTED PRN (Reason: Migraine Headache) Rx Instructions: take 1 tablet at onset of headache; if no relief, may repeat 1 tablet after at least 4 hrs cholecalciferol (vitamin D3) [Vitamin D3] 25 mcg (1,000 unit) Capsule 25 mcg PO DAILY ondansetron HCl 8 mg tablet 8 mg PO Q8H PRN (Reason: NAUSEA/VOMITING) famotidine 20 mg tablet 20 mg PO BID lisinopril 10 mg tablet 10 mg PO DAILY Nurtec ODT 75 mg tablet,disintegrating 75 mg PO Q OTHER DAY Discharge Orders: Discharge Order (Routine); Ordered 01/06/23 Ordered By: Nitesh Briones Admission Data Admit Date/Time: 01/05/23 02:12 Attending Provider: Nitesh Briones Admit Provider: Erik Hurley Primary Care Provider: Mitali Gutierrez Other Providers: Erik Hurley ; Gela Rey ; Wale Marks ; Shelby Tristan ; Lucy Cortez ; Maranda Jones ; Purvi Flores ; Chu Newton ; Octavio Montalvo ; Dayne Padilla ; Terrence Johansen ; Vladimir Montiel ; Sheila Calles ; Norma Beckford ; Anjali Ashford ; Sujey Jj ; Josemanuel Chance ; Bernabe Blanco ; Jabier Duff ; Amberly Ramos ; Debby Vargas Jr
[2023-01-07] MEDS ORDERED: NURTEC PO SCH (09:00)
--- NOTE | 2023-01-08 16:07 | Coding Query ---
ANEMIA To promote full compliance with coding requirements relating to patient care, physician participation is requested in all cases of certified ethical hacker uncertainty. Please assist us with the question(s) below: Coding Question(s): The record reflects the following clinical findings: DX on H&P: Anemia secondary hemorrhagic colitis. Laboratory: Hgb on admission was 13.0, dropping to 11.1 on 01/05. Hct was 41.7 on admission and dropped to 35.4 on 01/05. If these findings are indicative of anemia, please specify the known or suspected type by placing an "X" within the parenthesis (x). If other, please document type. Examples are: ( x) Acute blood loss anemia ( ) Chronic blood loss anemia ( ) Anemia of chronic disease ( ) Iron deficient anemia ( ) Anemia, unspecified or other ( ) Other: (please specify) ( ) Unable to determine Thank you for your time, RADHA Dixon, [facility]
== END 2023-01-06 15:09 | disposition home or self-care (01) | DRG 386 ==
LOC: ED 19:22 → 2N 01-05 02:12